=== PATIENT | female | born 1985 | race Caucasian/White ===

== ENCOUNTER → 2016-11-08 | Outpatient (REF) | payer OTHER ==
[~2016-11-08] MED LIST: ACET50TA PO; ANUS2.5C2 PR; DOCU10ELUD PO; IBUP80TA PO; LANOLIN CREAM TOP; MOM30SS PO; PRENTAB66 PO; TYLE325T5 PO
== END ==
LOC: M LABDRAWP 17:09
PROVIDERS: ATTEND Internal Medicine Endocrinology, Diabetes & Metabolism
DX: E06.3 Autoimmune thyroiditis (principal)

== ENCOUNTER → 2016-11-15 | Outpatient (CLI) | payer OTHER ==
--- NOTE | 2016-11-16 04:05 | REP ---
Clinical: Thyroid nodule. Technique: The time valentine scale and color evaluation using linear high frequency transducer and curved array transducer. Findings: The thyroid gland is diffusely heterogeneous. Right lobe measures 4.4 x 1.8 x 1.5 cm without cyst or nodule. Isthmus measures 4.1 mm in width. Left lobe measures 4.2 x 1.4 x 1.1 cm and includes 8 mm upper pole isoechoic nodule with small mural calcifications and similar 7 mm lower pole isoechoic nodule with small mural calcifications. Impression: Heterogeneous thyroid gland with two small left lobe nodules which are otherwise nonspecific and similar to prior examination. Signed by Justin Daley MD 11/16/2016 03:57 A
== END ==
LOC: M RAD 17:55
PROVIDERS: ATTEND Internal Medicine Endocrinology, Diabetes & Metabolism
DX: E04.1 Nontoxic single thyroid nodule (principal)

== ENCOUNTER → 2017-10-13 | Outpatient (CLI) | payer OTHER ==
[2017-10-13 18:59] LABS: FREE T4 0.98 NG/DL (0.76-1.46)
== END ==
LOC: M WUC 16:22
PROVIDERS: ATTEND Internal Medicine Endocrinology, Diabetes & Metabolism
DX: E04.2 Nontoxic multinodular goiter (principal)

== ENCOUNTER → 2017-12-08 | Outpatient (REF) | payer OTHER | LOC: M SFHCLERA 16:51 | DX: J02.9 Acute pharyngitis, unspecified (principal) ==

== ENCOUNTER → 2017-12-09 | Outpatient (REF) | payer OTHER | LOC: M LAB REF 10:00 | DX: J11.1 Influenza due to unidentified influenza virus with other respiratory manifestations (principal) ==

== ENCOUNTER → 2018-02-22 | Outpatient (CLI) | payer OTHER | LOC: M WUC 13:41 | DX: E06.3 Autoimmune thyroiditis (principal) | CPT/HCPCS: 84443 ==

== ENCOUNTER → 2018-02-22 | Outpatient (CLI) | payer OTHER ==
[2018-02-22 18:39] LABS: BASO % 0.4 % (0.0-1.0); EOS # 0.1 10^3/uL (0.0-0.50); EOS % 2.5 % (0.0-3.0); HEMATOCRIT 36.6 % (36.0-47.0); HEMOGLOBIN 12.1 g/dl (12.0-15.5); IMMATURE GRANULOCYTE % 0.2 % (0-3.0); LYMPH # 1.5 10^3/uL (1.5-4.5); LYMPH % 32.7 % (24.0-44.0); MEAN CORPUSCULAR HEMOGLOBIN 30.3 pg (27.0-33.0); MEAN CORPUSCULAR HGB CONC 33.1 g/dl (32.0-36.5); MEAN CORPUSCULAR VOLUME 91.7 fl (80.0-96.0); MONO # 0.3 10^3/uL (0.0-0.8); NEUTROPHILS # 2.6 10^3/uL (1.8-7.7); NEUTROPHILS % 57.2 % (36.0-66.0); PLATELET COUNT, AUTOMATED 321 10^3/uL (150-450); RED BLOOD COUNT 3.99 10^6/uL (4.00-5.40); RED CELL DISTRIBUTION WIDTH 12.8 % (11.5-14.5); WHITE BLOOD COUNT 4.5 10^3/uL (4.0-10.0)
[2018-02-22 19:06] LABS: ALBUMIN 4.3 GM/DL (3.2-5.2); ALBUMIN/GLOBULIN RATIO 1.34 (1.00-1.93); ALKALINE PHOSPHATASE 46 U/L (45-117); ALT/SGPT 21 U/L (12-78); ANION GAP 5 MEQ/L (8-16); AST/SGOT 18 U/L (7-37); BILIRUBIN,TOTAL 0.3 MG/DL (0.2-1.0); BLOOD UREA NITROGEN 12 MG/DL (7-18); CALCIUM LEVEL 8.8 MG/DL (8.5-10.1); CARBON DIOXIDE LEVEL 27 MEQ/L (21-32); CHLORIDE LEVEL 106 MEQ/L (98-107); CREATININE FOR GFR 0.74 MG/DL (0.55-1.30); GLOMERULAR FILTRATION RATE > 60.0 (>60); GLUCOSE, FASTING 132 MG/DL (70-100); SODIUM LEVEL 138 MEQ/L (136-145); TOTAL PROTEIN 7.5 GM/DL (6.4-8.2)
== END ==
LOC: M WUC 13:38
DX: J30.9 Allergic rhinitis, unspecified (principal); K59.09 Other constipation
CPT/HCPCS: 80053

== ENCOUNTER → 2018-04-09 | Outpatient (REF) | payer OTHER | LOC: M LAB REF 18:34 | DX: E04.1 Nontoxic single thyroid nodule (principal) ==

== ENCOUNTER → 2018-07-03 | Outpatient (REF) | payer OTHER ==
[2018-07-05 14:17] LABS: HPV HYBRID CAPTURE II Negative (Negative)
== END ==
LOC: M LAB REF 17:59
DX: Z12.4 Encounter for screening for malignant neoplasm of cervix (principal)

== ENCOUNTER → 2018-11-08 | Outpatient (CLI) | payer OTHER ==
[2018-11-08 19:43] LABS: FREE T4 1.21 NG/DL (0.76-1.46); THYROID STIMULATING HORMONE 0.651 uIU/ML (0.358-3.740)
== END ==
LOC: M WUC 17:15
PROVIDERS: ATTEND Nurse Practitioner Family
DX: E06.3 Autoimmune thyroiditis (principal)

== ENCOUNTER → 2019-05-13 | Outpatient (CLI) | payer OTHER ==
[~2019-05-13] MED LIST changes: -ACET50TA PO; -DOCU10ELUD PO; +DOCU5LIQ PO; +MAPA500T17 PO
[2019-05-13 17:31] LABS: FREE T4 0.94 NG/DL (0.76-1.46); THYROID STIMULATING HORMONE 1.54 uIU/ML (0.358-3.740)
== END ==
LOC: M WUC 13:33
PROVIDERS: ATTEND Nurse Practitioner Family
DX: E06.3 Autoimmune thyroiditis (principal)

== ENCOUNTER → 2019-07-09 | Outpatient (CLI) | payer OTHER ==
[2019-07-09 20:20] LABS: BASO # 0.1 10^3/uL (0.0-0.2); BASO % 0.9 % (0.0-1.0); EOS # 0.1 10^3/uL (0.0-0.5); EOS % 1.2 % (0.0-3.0); HEMATOCRIT 39.5 % (36.0-47.0); HEMOGLOBIN 13.3 g/dl (12.0-15.5); LYMPH # 1.7 10^3/uL (1.5-5.0); LYMPH % 25.8 % (24.0-44.0); MEAN CORPUSCULAR HGB CONC 33.7 g/dl (32.0-36.5); MEAN CORPUSCULAR VOLUME 92.1 fl (80.0-96.0); MONO # 0.5 10^3/uL (0.0-0.8); MONO % 7.6 % (0.0-5.0); NEUTROPHILS # 4.3 10^3/uL (1.5-8.5); NEUTROPHILS % 64.2 % (36.0-66.0); PLATELET COUNT, AUTOMATED 287 10^3/uL (150-450); RED BLOOD COUNT 4.29 10^6/uL (4.00-5.40); WHITE BLOOD COUNT 6.7 10^3/uL (4.0-10.0)
[2019-07-09 20:27] LABS: ALBUMIN 4.5 GM/DL (3.2-5.2); ALT/SGPT 22 U/L (12-78); BILIRUBIN,TOTAL 0.2 MG/DL (0.2-1.0); BLOOD UREA NITROGEN 15 MG/DL (7-18); CALCIUM LEVEL 9.2 MG/DL (8.5-10.1); CARBON DIOXIDE LEVEL 26 MEQ/L (21-32); CHLORIDE LEVEL 106 MEQ/L (98-107); CREATININE FOR GFR 0.74 MG/DL (0.55-1.30); GLOMERULAR FILTRATION RATE > 60.0 (>60); GLUCOSE, FASTING 85 MG/DL (70-100); POTASSIUM SERUM 4.1 MEQ/L (3.5-5.1); SODIUM LEVEL 139 MEQ/L (136-145); TOTAL PROTEIN 7.3 GM/DL (6.4-8.2)
--- NOTE | 2019-07-10 03:20 | REP ---
Clinical: Cough . Comparison: 10/17/2015 . Technique: PA and lateral. Findings: The mediastinum and cardiac silhouette are normal. The lung boyd are clear and without acute consolidation, effusion, or pneumothorax. The skeletal structures are intact and normal. Impression: 1. No acute cardiopulmonary process. Electronically Signed by Justin Daley MD 07/10/2019 03:12 A
== END ==
LOC: M WUC 17:14
PROVIDERS: ATTEND Physician Assistant Medical
DX: R05 Cough (principal)

== ENCOUNTER → 2019-08-05 | Outpatient (CLI) | payer OTHER ==
[2019-08-05 16:34] LABS: FREE T4 0.91 NG/DL (0.76-1.46); THYROID STIMULATING HORMONE 1.63 uIU/ML (0.358-3.740)
== END ==
LOC: M WUC 11:07
PROVIDERS: ATTEND Nurse Practitioner Family
DX: E06.3 Autoimmune thyroiditis (principal)

== ENCOUNTER → 2019-08-05 | Outpatient (CLI) | payer OTHER ==
[2019-08-05 16:28] LABS: CHOLESTEROL RISK RATIO 2.509 (<5)
== END ==
LOC: M WUC 11:10
PROVIDERS: ATTEND Physician Assistant Medical
DX: Z13.220 Encounter for screening for lipoid disorders (principal)

== ENCOUNTER → 2019-11-27 | Outpatient (CLI) | payer OTHER ==
[2019-11-27 20:48] LABS: FREE T4 1.1 NG/DL (0.76-1.46); THYROID STIMULATING HORMONE 0.989 uIU/ML (0.358-3.740)
== END ==
LOC: M WUC 15:27
PROVIDERS: ATTEND Nurse Practitioner Family
DX: E06.3 Autoimmune thyroiditis (principal)

== ENCOUNTER → 2020-09-03 | Outpatient (CLI) | payer OTHER ==
[2020-09-03 15:51] LABS: BASO % 0.7 % (0.0-1.0); C REACTIVE PROTEIN QUANTITATIV < 0.30 MG/DL (0.00-0.30); EOS # 0.1 10^3/uL (0.0-0.5); HEMATOCRIT 37.4 % (36.0-47.0); HEMOGLOBIN 12.2 g/dl (12.0-15.5); LYMPH # 1.3 10^3/uL (1.5-5.0); LYMPH % 27.7 % (24.0-44.0); MEAN CORPUSCULAR HGB CONC 32.6 g/dl (32.0-36.5); MEAN CORPUSCULAR VOLUME 92.1 fl (80.0-96.0); MONO # 0.3 10^3/uL (0.0-0.8); MONO % 7.4 % (0.0-5.0); NEUTROPHILS # 2.8 10^3/uL (1.5-8.5); NEUTROPHILS % 61.8 % (36.0-66.0); PLATELET COUNT, AUTOMATED 302 10^3/uL (150-450); RED BLOOD COUNT 4.06 10^6/uL (4.00-5.40); RHEUMATOID FACTOR QUANT < 10.0 IU/ML (<15.0); WHITE BLOOD COUNT 4.6 10^3/uL (4.0-10.0)
[2020-09-03 17:01] LABS: ERYTHROCYTE SEDIMENTATION RATE 6 mm/hr (0-20)
[2020-09-05 15:10] LABS: ANTINUCLEAR ANTIBODIES DIRECT Negative (Negative); Lyme Disease IgG/IgM Antibodie <0.91 ISR (0.00-0.90); Lyme Disease IgM Ab Quantitati <0.80 index (0.00-0.79)
== END ==
LOC: M PLALAB 12:33
PROVIDERS: ATTEND Orthopaedic Surgery
DX: M25.561 Pain in right knee (principal)

== ENCOUNTER → 2020-09-03 | Outpatient (REF) | payer OTHER ==
[2020-09-03 15:50] LABS: BASO % 0.9 % (0.0-1.0); EOS # 0.1 10^3/uL (0.0-0.5); EOS % 2.4 % (0.0-3.0); HEMATOCRIT 37.6 % (36.0-47.0); HEMOGLOBIN 12.3 g/dl (12.0-15.5); LYMPH # 1.3 10^3/uL (1.5-5.0); LYMPH % 29.1 % (24.0-44.0); MEAN CORPUSCULAR HEMOGLOBIN 30.1 pg (27.0-33.0); MEAN CORPUSCULAR HGB CONC 32.7 g/dl (32.0-36.5); MEAN CORPUSCULAR VOLUME 91.9 fl (80.0-96.0); MONO # 0.3 10^3/uL (0.0-0.8); MONO % 7.3 % (0.0-5.0); NEUTROPHILS # 2.7 10^3/uL (1.5-8.5); NEUTROPHILS % 60.1 % (36.0-66.0); PLATELET COUNT, AUTOMATED 305 10^3/uL (150-450); RED BLOOD COUNT 4.09 10^6/uL (4.00-5.40); WHITE BLOOD COUNT 4.5 10^3/uL (4.0-10.0)
[2020-09-03 16:02] LABS: ALBUMIN 4.1 GM/DL (3.2-5.2); ALT/SGPT 13 U/L (12-78); BILIRUBIN,TOTAL 0.4 MG/DL (0.2-1.0); BLOOD UREA NITROGEN 12 MG/DL (7-18); CALCIUM LEVEL 8.7 MG/DL (8.5-10.1); CARBON DIOXIDE LEVEL 26 MEQ/L (21-32); CHLORIDE LEVEL 108 MEQ/L (98-107); CHOLESTEROL LEVEL 144 MG/DL (<200); CHOLESTEROL RISK RATIO 2.769 (<5); CREATININE FOR GFR 0.64 MG/DL (0.55-1.30); FREE T4 0.93 NG/DL (0.76-1.46); GLOMERULAR FILTRATION RATE > 60.0 (>60); GLUCOSE, FASTING 88 MG/DL (70-100); HDL CHOLESTEROL 52 MG/DL (>40); LDL CHOLESTEROL 76 MG/DL (<100); NON-HDL-C 92 MG/DL; POTASSIUM SERUM 3.7 MEQ/L (3.5-5.1); SODIUM LEVEL 140 MEQ/L (136-145); TRIGLYCERIDES LEVEL 78 MG/DL (<150)
== END ==
LOC: M SFHCPLAZ 12:32
PROVIDERS: ATTEND Physician Assistant Medical
DX: E06.3 Autoimmune thyroiditis (principal); J30.9 Allergic rhinitis, unspecified; Z13.220 Encounter for screening for lipoid disorders

== ENCOUNTER → 2020-11-04 | Outpatient (CLI) | payer OTHER ==
[~2020-11-04] MED LIST changes: +LEVO25TA5 PO; +OMEP-221 PO; +VITMTA PO
== END ==
LOC: M LABSMTC 14:20
PROVIDERS: ATTEND Anesthesiology
DX: Z01.812 Encounter for preprocedural laboratory examination (principal); Z20.822 Contact with and (suspected) exposure to COVID-19

== ENCOUNTER 2020-11-09 11:08 | Day surgery (SDC) | payer OTHER ==
[~2020-11-09] VITALS: Ht 154.9 cm; Wt 54.9 kg
[~2020-11-09 11:08] MED LIST changes: +NS 1,000 ML IV ONE
--- OUTSIDE RECORDS SUMMARY | 2020-11-09 11:12 | CCD | Continuity of Care Document ---
Author Author Stress Nuclear/Reg Treadmill Maylin Organization Unknown Address [address] [place] [address], [place] [address] Phone [phone] Care Team Providers Care Sterile Tech Name Role Phone Hafsa Becker AUTM [phone] Vaishali Teague MD AUTM [phone] Eder Garcia MD AUTM [phone] Alisia Cisse MD AUTM [phone] Problems Active Problems Provider Date Dyspnea Jacob Malone MD Onset: 11/04/2020 Heart murmur Jacob Malone MD Onset: 11/04/2020 Palpitations Jacob Malone MD Onset: 11/04/2020 Preoperative cardiovascular examination Jacob Malone MD Onset: 11/04/2020 Pectus excavatum Jacob Malone MD Onset: 11/04/2020 Electrocardiogram abnormal Jacob Malone MD Onset: 2020 Social History Type Date Description Comments Sex Unknown ETOH Use Occasionally consumes alcohol Tobacco Use Start: Unknown Patient has never smoked Smoking Status Reviewed: 11/04/20 Patient has never smoked Exercise Type/Frequency Fully active: Ab le to carry on all performance without restriction Cardio for 20 minutes daily Exercise Limitations Shortness Of Breath Exercise Limitations Other Elevated HR Allergies, Adverse Reactions, Alerts Description No Known Drug Allergies Medications Active Medications SIG Qnty Indications Ordering Provide r Date Sumatriptan Succinate 50mg Tablets take 1 tab onset of migraine and repeat dose in 1 hour if needed, mdd=2 Unknown 11/03/2020 Levothyroxine Sodium 25mcg Tablets 1 by mouth every day Unknown 11/03/2020 Multivitamin Adults Tablets 1 by mouth every day Unknown 11/03/2020 Prilosec OTC 20mg Tablets DR 2 by mouth every day Unknown 11/02/2020 Immunizations Description No Information Available Vital Signs Date Vital Result Comment 11/04/2020 2:40pm Weight 119.00 lb Home Weight 121lb home weight Height 61 inches 5'1" BMI (Body Mass Index) 22.5 kg/m2 Heart Rate 64 /min regular Respiratory Rate 16 /min BP Systolic Sitting 127 mmHg Medium cuff, Ra; 122 / 82 LA BP Diastolic Sitting 84 mmHg Medium cuff, Ra; 12 2/ 82 LA BP Systolic Lying Down 132 mmHg Ra BP Diastolic Lying Down 85 mmHg Ra 02/06/2015 9:33am Weight 112.50 lb Home Weight 112lb Height 61 inches 5'1" BMI (Body Mass Index) 21.3 kg/m2 Heart Rate 78 /min regular Respiratory Rate 16 /min BP Systolic Sitting 120 mmHg both arms BP Diastolic Sitting 75 mmHg both arms BP Systolic Lying Down 115 mmHg Medium cuff, Ra BP Diastolic Lying Down 75 mmHg Medium cuff, Ra Results Test Acquired Date Facility Test Result H/L Range Note CBC without Differential 09/03/2020 [facility] - not inter faced (315)- - White Blood Count 4.6 Low 5.0-10.0 Red Blood Count 4.06 4.00-5.40 Platelets 302 172-450 Hemoglobin 12.2 Hematocrit 37.4 CMP 09/03/2020 [facility] - not interfaced (315)- - Albumin Serum/Plasma 4.1 Alt - SGPT 13 Calcium Ser/Plasma Mass/Vol 8.7 Carbon Dioxide Ser/Plasm 26 Chloride Serum/Plasma 108 Alkaline Phosphatase 42 Potassium 3.7 Protein Total 7.0 Sodium 140 Ast - Sgot 11 BUN - Urea Nitrogen 12 Glucose 88 83-110 Creatinine For GFR 0.64 Lipid Profile/Cardiac Risk Pro 09/03/2020 [facility] - not interfaced (315)- - Triglycerides 78 <150 Cholesterol 144 <200 HDL 52 >40.0 LDL Cholesterol 76 Chol/HDL Ratio 2.769 <5 Laboratory test finding 09/03/2020 [facility] - not interf aced (315)- - Thyroid Stimulating Hormone 1.660 Free T4 0.93 Procedures Date Code Description Status 11/05/2020 99846 Treadmill/Pharmacological Monito ring Completed 11/04/2020 61221 ECG 12-Lead Completed Medical Devices Description No Information Available Encounters Type Date Location Provider Dx Diagnosis Office Visit 11/04/2020 2:30p Main Office Jacob Malone MD R06.02 Shortness of breath R00.2 Palpitations R01.1 Cardiac murmur, unspecified R94.31 Abnormal electrocardiogram [ ECG] [EKG] Q67.6 Pectus excavatum Z01.810 Encounter for preprocedural cardiovascular examination Assessments Date Code Description Provider 11/05/2020 R06.00 Dyspnea, unspecified Stress Nucl ear/Reg Treadmill 11/05/2020 R94.31 Abnormal electrocardiogram [ECG] [EKG] Stress Nuclear/Reg Treadmill 11/05/2020 R00.2 Palpitations Stress Nuclear/R eg Treadmill 11/04/2020 R06.02 Shortness of breath Jacob morales MD 11/04/2020 R00.2 Palpitations Jacob Malone MD 11/04/2020 R01.1 Cardiac murmur, unspecified Noah Malone MD 11/04/2020 R94.31 Abnormal electrocardiogram [ECG] [EKG] Jacob Malone MD 11/04/2020 Q67.6 Pectus excavatum Jacob Malone MD 11/04/2020 Z01.810 Encounter for preprocedural card iovascular examination Jacob Malone MD Plan of Treatment Future Appointment(s):* 12/15/2020 3:00 pm - ECHO at Main Office 11/04/2020 - Jacob Malone MD* R06.02 Shortness of breath* Recommendations:* In light of this effort symptom and her associated palpitations, have suggested a regular treadmill stress study to objectively define her effort tolerance and rhythm. Should this confirm favorable findings, we would encourage her resuming her regular exercise routine for at least 30 minutes every day. An echocardiogram has been suggested as well because of her heart murmur, and this will allow us to objectively define cardiac chamber sizes and function. * R00.2 Palpitations* Recommendations:* No specific monitoring has been requested beyond that we will obtain at the time of her treadmill study and echocardiogram. Would encourage continued minimizing intake of caffeinated beverages, alcohol, nicotine and [id number] decongestants, pep pills, dietary aids etc. Discussed the use of Naprosyn twice a day prophylactically prior to predictable monthly migraine, rather than Sumatriptan. * R01.1 Cardiac murmur, unspecified* New Xrays:* US Echocardiogram Transthoracic W Doppler And Color Flow, Scheduled: 12/15/20 * Recommendations:* In light of this finding, pectus excavatum, slight thoracic scoliosis and family history of mitral valve prolapse, have suggested a follow-up echocardiogram/Doppler study to further clarify valvular appearance and function. * R94.31 Abnormal electrocardiogram [ECG] [EKG]* Recommendations:* Pending noninvasive test findings. * Q67.6 Pectus excavatum* Recommendations:* No special measures are deemed necessary beyond the noninvasive tests mentioned above. * Z01.810 Encounter for preprocedural cardiovascular examination* Recommendations:* I am cautiously optimistic noninvasive test findings will be benign and not interfere with her procedures. * All * Comments:* I will ensure that the aforementioned test findings are reported to you along with any further recommendations. Thank you for allowing me to participate in the care of your patient. Best regards. * Follow up:* Pending test results Functional Status Functional Condition Comment Date Status Independent with all ADL's Activ e Mental Status Description No Information Available Referrals Description No Information Available
--- OUTSIDE RECORDS SUMMARY | 2020-11-09 11:13 | CCD | Continuity of Care Document ---
Author Author Maylin CHAN MD Organization Unknown Address [address] [place] [address] Phone [phone] Problems Description No Information Available Social History Type Date Description Comments Sex Unknown Allergies, Adverse Reactions, Alerts Description No Information Available Medications Description No Information Available Immunizations Description No Information Available Vital Signs Description No Information Available Results Test Acquired Date Facility Test Result H/L Range Note Antinuclear Antibodies 09/03/2020 [place] [address] (315)- - Antinuclear Antibodies Direct Negative Normal Negati ve 1 Laboratory test finding [facility] [address] [place] [address] (315)- - Rheumatoid Factor Quant < 10.0 IU/mL Normal <15.0 CBC With Differential 09/03/[address] [address] (315)- - White Blood Count 4.6 10 Normal 4.0-10.0 Red Blood Count 4.06 10 Normal 4.00-5.40 Hemoglobin 12.2 g/dL Normal 12.0-15.5 Hematocrit 37.4 % Normal 36.0-47.0 Mean Corpuscular Volume 92.1 fl Normal 80.0-96.0 Mean Corpuscular Hemoglobin 30.0 pg Normal 27.0-33.0 Mean Corpuscular HGB Conc 32.6 g/dL Normal 32.0-36.5 Red Cell Distribution Width 12.6 % Normal 11.5-14.5 Platelet Count, Automated 302 10 Normal 150-450 Neutrophils % 61.8 % Normal 36.0-66.0 Lymph % 27.7 % Normal 24.0-44.0 Gove % 7.4 % High 0.0-5.0 Eos % 2.0 % Normal 0.0-3.0 Baso % 0.7 % Normal 0.0-1.0 Immature Granulocyte % 0.4 % Normal 0-3.0 Nucleated Red Blood Cell % 0.0 % Normal 0-0 Neutrophils # 2.8 10 Normal 1.5-8.5 Lymph # 1.3 10 Low 1.5-5.0 Gove # 0.3 10 Normal 0.0-0.8 Eos # 0.1 10 Normal 0.0-0.5 Baso # 0.0 10 Normal 0.0-0.2 Laboratory test finding 09/03/2020 [facility] [address] [place] [address] (315)- - C Reactive Protein Quantitativ < 0.30 mg/dL Normal 0.0 0-0.30 Lyme Disease SCRN With Confirm 09/03/2020 [facility] [address] [place] [address] (315)- - Lyme Disease IgG/IgM Antibodie <0.91 ISR Normal 0.00- 0.90 2 Lyme Disease IgM Ab Quantitati <0.80 index Normal 0.00-0.79 3 Laboratory test finding 09/03/2020 [facility] [address] [place] [address] (315)- - Erythrocyte Sedimentation Rate 6 mm/hr Normal 0-20 1 Performed at: RN - [facility] [address] [id number] Auger Machine Offbearer: Deb Monzon MD, Phone: [phone] 2 Negative <0.91 Equivocal 0.91 - 1.09 Positive >1.09 3 Negative <0.80 Equivocal 0.80 - 1.19 Positive >1.19 . IgM levels may peak at 3-6 weeks post infection, then gradually decline. Procedures Date Code Description Status 09/03/2020 07724 MRI Lower Extremity Any Joint Co mpleted 09/03/2020 94475 MRI Lower Extremity Any Joint Co mpleted 09/03/2020 72733 MRI Upper Extremity Any Joint Co mpleted 08/27/2020 13310 X-Ray Knee Complete W/Obliques & Tunnel And/Or Standing Views Completed 08/27/2020 45835 X-Ray Finger(S) Two Views Comple MtoV Description No Information Available Encounters Type Date Location Provider Dx Diagnosis Office Visit 09/11/2020 3:30p [place] Darron Chan MD M25.561 Pain in right knee M79.645 Pain in left finger(s) Office Visit 08/27/2020 3:00p [place] Darron Chan MD M25.561 Pain in right knee M19.042 Primary osteoarthritis, left hand Assessments Date Code Description Provider 09/11/2020 M25.561 Pain in right knee Darron drake MD 09/11/2020 M79.645 Pain in left finger(s) Darron Chan MD 09/03/2020 M25.561 Pain in right knee Darron drake MD 09/03/2020 M19.042 Primary osteoarthritis, left bolton d Darron Chan MD 09/03/2020 M25.561 Pain in right knee MRI 09/03/2020 M19.042 Primary osteoarthritis, left bolton d MRI 08/27/2020 M25.561 Pain in right knee Darron drake MD 08/27/2020 M19.042 Primary osteoarthritis, left bolton d Darron Chan MD Plan of Treatment No Information Available Functional Status Description No Information Available Mental Status Description No Information Available Referrals Refer to Dr Reason for Referral Status Appt Date Darron Chan MD PT ALLOWED EVAL THEN NEEDS A [facility]([phone]) GROUP#[id number] TO PT DEPT. NT Created [address] [place] [address] [phone] Darron Chan MD REF NO AUTH REQUIRED FOR REF TO HAND SURGEON AT [facility] TO TRANS NT Created [address] [place] [address] [phone] Darron Chan MD MRI'S APPROVED PER EDI Martin MRI OF RIGHT KNEE (32270) AND LEFT THUMB (61751) TO MRI. DG Created [address] [place] [address] [phone]
--- OUTSIDE RECORDS SUMMARY | 2020-11-09 11:13 | CCD | Continuity of Care Document ---
Author Author Maylin GARCIA M.D. Organization Unknown Address [address] [place] [address] Phone [phone] Care Team Providers Care Sharepoint Administrator Name Role Phone Hafsa Becker AUTM [phone] Problems Active Problems Provider Date Dysphagia Eder Garcia M.D. Onset: 10/08/20 20 Social History Type Date Description Comments Sex Unknown ETOH Use Occasionally Tobacco Use Start: Unknown Patient has never smoked Allergies, Adverse Reactions, Alerts Description No Known Drug Allergies Medications Active Medications SIG Qnty Indications Ordering Provide r Date Omeprazole 40mg Capsules DR 1 cap by mouth every morning 30caps Eder Garcia M.D. 020 Sumatriptan Succinate 50mg Tablets Hafsa Becker PA Levothyroxine Sodium 25mcg Tablets Alisia Cisse M.D. Multiple Vitamin Tablets Unknown Immunizations Description No Information Available Vital Signs Date Vital Result Comment 10/08/2020 1:28pm Height 61 inches 5'1" Weight 120.00 lb BP Systolic 117 mmHg BP Diastolic 86 mmHg Heart Rate 82 /min BMI (Body Mass Index) 22.7 kg/m2 Weight 54.432 kg Body Temperature 97.2 F Results Description No Information Available Procedures Description No Information Available Medical Devices Description No Information Available Encounters Type Date Location Provider Dx Diagnosis Office Visit 10/08/2020 1:15p Main Office Eder Garcia M.D. R 13.10 Dysphagia, unspecified Assessments Date Code Description Provider 10/08/2020 R13.10 Dysphagia, unspecified Eder Garcia M.D. Plan of Treatment Future Appointment(s):* 11/09/2020 9:00 am - Eder Garcia M.D. at Main Office 10/08/2020 - Eder Garcia M.D.* R13.10 Dysphagia, unspecified* Comments: * 35 yo wf who presents for a h/o dysphagia for 1 yr. No c/o abdominal pain, weight loss, change in bowel habits, or rectal bleeding. No family h/o colon cancer. No h/o chest pain, or sob. Plan:1. Egd + bd2. PPi bid.3. Informed consent. Functional Status Description No Information Available Mental Status Description No Information Available Referrals Description No Information Available
--- OUTSIDE RECORDS SUMMARY | 2020-11-09 11:13 | CCD | Continuity of Care Document ---
Author Author Maylin PRATT Organization Unknown Address [address] [place] [address] Phone [phone] Problems Description No Information Available Social History Type Date Description Comments Sex Unknown Allergies, Adverse Reactions, Alerts Description No Information Available Medications Description No Information Available Immunizations Description No Information Available Vital Signs Description No Information Available Results Test Acquired Date Facility Test Result H/L Range Note Antinuclear Antibodies 09/03/[address] [facility] [place] [address] (315)- - Antinuclear Antibodies Direct Negative Normal Negati ve 1 Laboratory test finding [facility] [address] [place] [address] (315)- - Rheumatoid Factor Quant < 10.0 IU/mL Normal <15.0 CBC With Differential 09/03/[address] [address] (315)- - White Blood Count 4.6 10 [...] 36.0-66.0 Lymph % 27.7 % Normal 24.0-44.0 Walker % 7.4 % High 0.0-5.0 Eos % 2.0 % Normal 0.0-3.0 Baso % 0.7 % Normal 0.0-1.0 Immature Granulocyte % 0.4 % Normal 0-3.0 Nucleated Red Blood Cell % 0.0 % Normal 0-0 Neutrophils # 2.8 10 Normal 1.5-8.5 Lymph # 1.3 10 Low 1.5-5.0 Walker # 0.3 10 Normal 0.0-0.8 Eos # 0.1 10 Normal 0.0-0.5 Baso # 0.0 10 Normal 0.0-0.2 Laboratory test finding 09/03/2020 [facility] [address] [place] [address] (315)- - C Reactive Protein Quantitativ < 0.30 mg/dL Normal 0.0 0-0.30 Lyme Disease SCRN With Confirm 09/03/[address] [facility] [address] [place] [address] (315)- - Lyme Disease IgG/IgM Antibodie <0.91 ISR Normal 0.00- 0.90 2 Lyme Disease IgM Ab Quantitati <0.80 index Normal 0.00-0.79 3 Laboratory test finding 09/03/2020 [facility] [address] [place] [address] (315)- - Erythrocyte Sedimentation Rate 6 mm/hr Normal 0-20 1 Performed at: RN - [facility] [address] [id number] [employer]ending Vice President: Deb Monzon MD, Phone: [phone] 2 Negative <0.91 Equivocal 0.91 - 1.09 Positive >1.09 3 Negative <0.80 Equivocal 0.80 - 1.19 Positive >1.19 . IgM levels may peak at 3-6 weeks post infection, then gradually decline. Procedures Date Code Description Status 09/03/2020 78433 MRI Lower Extremity Any Joint Co mpleted 09/03/2020 00629 MRI Lower Extremity Any Joint Co mpleted 09/03/2020 94955 MRI Upper Extremity Any Joint Co mpleted 08/27/2020 94880 X-Ray Knee Complete W/Obliques & Tunnel And/Or Standing Views Completed 08/27/2020 17188 X-Ray Finger(S) Two Views Comple [email or web address] Description No Information Available Encounters Type Date Location Provider Dx Diagnosis Office Visit 08/27/2020 3:00p [place] Darron Cisse MD M25.561 Pain in right knee M19.042 Primary osteoarthritis, left hand Assessments Date Code Description Provider 09/03/2020 M25.561 Pain in right knee Darron drake MD 09/03/2020 M19.042 Primary osteoarthritis, left bolton d Darron Cisse MD 09/03/2020 M25.561 Pain in right knee MRI 09/03/2020 M19.042 Primary osteoarthritis, left bolton d MRI 08/27/2020 M25.561 Pain in right knee Darron drake MD 08/27/2020 M19.042 Primary osteoarthritis, left bolton d Darron Cisse MD Plan of Treatment Future Appointment(s):* 09/11/2020 3:30 pm - Darron Cisse MD at [place] 08/27/2020 - Darron Cisse MD* M25.561 Pain in right knee* Follow up:* with [facility] after both mri's for results [facility] * M19.042 Primary osteoarthritis, left hand Functional Status Description No Information Available Mental Status Description No Information Available Referrals Refer to Dr Reason for Referral Status Appt Date Darron Cisse MD MRI'S APPROVED PER EDI Martin MRI OF RIGHT KNEE (38848) AND LEFT THUMB (82232) TO MRI. DG Created [facility], [address] [place] [address] [phone]
--- OUTSIDE RECORDS SUMMARY | 2020-11-09 11:13 | CCD | Continuity of Care Document ---
Author Author Maylin CHAN MD Organization Unknown Address [address] [place] [address] Phone [phone] Problems Description No Information Available Social History Type Date Description Comments Sex Unknown Allergies, Adverse Reactions, Alerts Description No Information Available Medications Description No Information Available Immunizations Description No Information Available Vital Signs Description No Information Available Results Test Acquired Date Facility Test Result H/L Range Note Antinuclear Antibodies 09/03/2020 [facility] [address] (315)- - Antinuclear Antibodies Direct Negative Normal Negati ve 1 Laboratory test finding 09/03/[facility] [address] [place] [address] (315)- - Rheumatoid Factor Quant < 10.0 IU/mL Normal <15.0 CBC With Differential 09/03/[address] [address] (315)- - White Blood Count 4.6 10 [...] 36.0-66.0 Lymph % 27.7 % Normal 24.0-44.0 Hall % 7.4 % High 0.0-5.0 Eos % 2.0 % Normal 0.0-3.0 Baso % 0.7 % Normal 0.0-1.0 Immature Granulocyte % 0.4 % Normal 0-3.0 Nucleated Red Blood Cell % 0.0 % Normal 0-0 Neutrophils # 2.8 10 Normal 1.5-8.5 Lymph # 1.3 10 Low 1.5-5.0 Hall # 0.3 10 Normal 0.0-0.8 Eos # 0.1 10 Normal 0.0-0.5 Baso # 0.0 10 Normal 0.0-0.2 Laboratory test finding 09/03/2020 [facility] Cent[facility] [address] [place] [address] (315)- - C Reactive Protein Quantitativ < 0.30 mg/dL Normal 0.0 0-0.30 Lyme Disease SCRN With Confirm 09/03/2020 [facility] [address] [place] [address] (315)- - Lyme Disease IgG/IgM Antibodie <0.91 ISR Normal 0.00- 0.90 2 Lyme Disease IgM Ab Quantitati <0.80 index Normal 0.00-0.79 3 Laboratory test finding 09/03/2020 [facility] [address] [place] [address] (315)- - Erythrocyte Sedimentation Rate 6 mm/hr Normal 0-20 1 Performed at: RN - [facility] [address] [id number] Application Dba: Deb Monzon MD, Phone: [phone] 2 Negative <0.91 Equivocal 0.91 - 1.09 Positive >1.09 3 Negative <0.80 Equivocal 0.80 - 1.19 Positive >1.19 . IgM levels may peak at 3-6 weeks post infection, then gradually decline. Procedures Date Code Description Status 08/27/2020 20689 X-Ray Knee Complete W/Obliques & Tunnel And/Or Standing Views Completed 08/27/2020 66040 X-Ray Finger(S) Two Views Comple maureen Medical Devices Description No Information Available Encounters Type Date Location Provider Dx Diagnosis Office Visit 08/27/2020 3:00p [place] Darron Chan MD M25.561 Pain in right knee M19.042 Primary osteoarthritis, left hand Assessments Date Code Description Provider 08/27/2020 M25.561 Pain in right knee Darron drake MD 08/27/2020 M19.042 Primary osteoarthritis, left bolton d Darron Chan MD Plan of Treatment Future Appointment(s):* 09/11/2020 3:30 pm - Darron Chan MD at [place] 08/27/2020 - Darron Chan MD* M25.561 Pain in right knee* Follow up:* with [facility] after both mri's for results [facility] * M19.042 Primary osteoarthritis, left hand Functional Status Description No Information Available Mental Status Description No Information Available Referrals Refer to Dr Reason for Referral Status Appt Date Darron Chan MD MRI'S APPROVED PER EDI Martin MRI OF RIGHT KNEE (62520) AND LEFT THUMB (97319) TO MRI. DG Created [address] [facility], [address] [place] [address] [phone]
--- OUTSIDE RECORDS SUMMARY | 2020-11-09 11:13 | CCD ---
Author Author [facility] Organization [facility] Address Unknown Phone Unavailable Care Team Providers Care Squirt Machine Operator Name Role Phone Rosita Hafsa Unavailable PROBLEMS Type Condition ICD9-CM Code GWQ43-CA Code Onset Dates Condition S tatus SNOMED Code Notes Problem Chronic constipation K59.09 Active 671595161 Problem Allergic rhinitis J30.9 Active 79316933 Problem Migraines G43.909 Active 63790634 Problem Acne vulgaris L70.0 Active 01908637 Problem Axillary lymphadenopathy R59.0 Active 6703509 05 Problem Lipid screening Z13.220 Active 656193958 Problem Mitral valve insufficiency, unspecified etiology I 34.0 Active 02026604 Problem MRSA (methicillin resistant staph aureus) culture positive Z22.322 Active 676815701 Problem Pectus excavatum Q67.6 Active 566899661 Problem Radha's thyroiditis E06.3 Active 16362868 Problem Colon cancer screening Z12.11 Active 182406389 Problem Breast cancer screening Z12.39 Active 03252206 1 Problem Cervical cancer screening Z12.4 Active 354608 001 Problem Esophageal dysphagia R13.10 Active 13627375 ALLERGIES No Known Allergies ENCOUNTERS from 1985 to 2020-09-10 Encounter Location Date Provider Diagnosis [address] [address] 13 Aug, 2020 Hafsa Becker Mitral valve insufficiency, unspecified etiology I34.0 and Pectus excavatum Q67.6 IMMUNIZATIONS Vaccine Route Administration Date Status Influenza (Pharmacy Given) Unknown Oct 03, 2019 Admin istered Influenza (18 yrs & older) Flublok Unknown Aug 11, 2020 Administered Pneumococcal 0.5mL (Prevnar 13) IM Intramuscular Jul 25, 2019 Administered Pneumococcal 0.5mL (Prevnar 13) Unknown Sep 21, 2016 Administered Influenza (6mo & up) Fluzone Unknown Aug 02, 2017 Adm inistered Influenza (6mo & up) Fluzone Unknown Sep 21, 2016 Adm inistered Influenza (6mo & up) Fluzone Unknown Oct 17, 2015 Oth ers SOCIAL HISTORY Tobacco Use: Social History Observation Description Date Details (start date - stop date) Never Smoker Sex Assigned At : Social History Observation Description Sex Assigned At Female Education: Question Answer Notes Level of Education: Finished High School Audit Question Answer Notes Total Score: 4 Interpretation: Alcohol Education Language: Question Answer Notes Languages spoken: Mongolian Worship: Question Answer Notes Worship 21 [employer] Drug and Alcohol Question Answer Notes Total Score: 0 Interpretation: No problems reported Alcohol Screening: Question Answer Notes Did you have a drink containing alcohol in the past year? Ye s Points 1 Interpretation Negative How often did you have six or more drinks on one occas ion in the past year? Never (0 points) How many drinks did you have on a typica l day when you were drinking in the past year? 1 or 2 (0 points) How often did you have a drink containing alcohol in t he past year? Monthly or less (1 point) Tobacco Use: Question Answer Notes Are you a: never smoker REASON FOR REFERRAL No Information VITAL SIGNS No information MEDICATIONS Medication SIG (Take, Route, Frequency, Duration) Notes Start Da te End Date Status Colace 100 MG 1 capsule as needed Orally Once a day for 30 day(s) Active Mucinex 600 MG 1 tablet as needed Orally every 12 hrs for 3 days Active Claritin 10 MG 1 tablet Orally Once a day as needed Active Flonase 50 MCG/ACT 1 spray in each nostril Nasally Once a day Active Imitrex 50 MG 1 tablet once a day as neede d, may repeat once in 1 hour, may repeat once if headache continues after 1 hour Orally Twice a day MDD2 for 30 Days Active ProAir HFA 108 (90 Base) MCG/ACT 2 puffs as needed Inhalation every 6 hrs Active MiraLax - as directed Orally Active Minocycline HCl 50 MG 1 capsule Orally bid Active Synthroid 25 MCG 1/2 tablet 12.5 mcg on an em pty stomach in the morning Orally Once a day Active PROCEDURES No Information RESULTS No Results REASON FOR VISIT referral MEDICAL (GENERAL) HISTORY Type Description Date Medical History Migraines Medical History Hashimotos sees Dr. Perez Simpson Medical History Allergic Rhinitis-bronchitis & pneumonia 5Y in a row Medical History Palpitations,tachycardia see s Dr. Kelly 2 Mitral Valve Insuffic., pectus excavatum, scoliosis Medical History MRSA @ [facility] 2014, 2016 again Surgical History Breast BIopsy-[facility] Goals Section No Information Health Concerns No Information MEDICAL EQUIPMENT No Information MENTAL STATUS No Information FUNCTIONAL STATUS No Information ASSESSMENTS Encounter Date Diagnosis Assessment Notes Treatment Notes Treatm ent Clinical Notes Aug, Mitral valve insufficiency, unspecified etiology (ICD-10 - I34.0) Aug, Pectus excavatum (ICD-10 - Q67.6) PLAN OF TREATMENT Medication Medication Name Sig Start Date Stop Date Colace 100 MG 1 capsule as needed Orally Once a day for 30 day (s) MiraLax - as directed Orally Flonase 50 MCG/ACT 1 spray in each nostril Nasally Once a day Minocycline HCl 50 MG 1 capsule Orally bid Synthroid 25 MCG 1/2 tablet 12.5 mcg on an em pty stomach in the morning Orally Once a day Claritin 10 MG 1 tablet Orally Once a day as needed Imitrex 50 MG 1 tablet once a day as neede d, may repeat once in 1 hour, may repeat once if headache continues after 1 hour Orally Twice a day MDD2 for 30 Days Next Appt Details Provider Name:Hafsa Mario Becker, 02-22 03:00:00 PM, [address] [place], [address], Insurance Providers Payer Name Payer Address Payer Phone Insured Name Patient Relati onship to Insured Coverage Start Date Coverage End Date [facility] [address] [address] [facility] [id number] MANOLO PATEL
--- OUTSIDE RECORDS SUMMARY | 2020-11-09 11:13 | CCD | Continuity of Care Document ---
Author Author Maylin GARCIA M.D. Organization Unknown Address [address] [place] [address] Phone [phone] Care Team Providers Care Art Sales Consultant Name Role Phone Hafsa Becker AUTM [phone] Problems Active Problems Provider Date Dysphagia Eder [...]
--- OUTSIDE RECORDS SUMMARY | 2020-11-09 11:13 | CCD | Continuity of Care Document ---
Author Author Maylin PRATT Organization Unknown Address [address] [place] [address], [address] [address] Phone [phone] Problems Description No Information Available Social History Type Date Description Comments Sex Unknown Allergies, Adverse Reactions, Alerts Description No Information Available Medications Description No Information Available Immunizations Description No Information Available Vital Signs Description No Information Available Results Description No Information Available Procedures Date Code Description Status 08/27/2020 44190 X-Ray Knee Complete W/Obliques & Tunnel And/Or Standing Views Completed 08/27/2020 60520 X-Ray Finger(S) Two Views Comple [employer] Description No Information Available Encounters Type Date Location Provider Dx Diagnosis Office Visit 08/27/2020 3:00p [place] Darron Cisse MD M25.561 Pain in right knee M19.042 Primary osteoarthritis, left hand Assessments Date Code Description Provider 08/27/2020 M25.561 Pain in right knee Darron drake MD 08/27/2020 M19.042 Primary osteoarthritis, left bolton d Darron Cises MD Plan of Treatment Future Appointment(s):* 09/11/2020 3:30 pm - Darron Cisse MD at [place] 08/27/2020 - Darron Cisse MD* M25.561 Pain in right knee* Follow up:* with [facility] after both mri's for results [facility] * M19.042 Primary osteoarthritis, left hand Functional Status Description No Information Available Mental Status Description No Information Available Referrals Refer to Reason for Referral Status Appt Date Darron Cisse MD MRI'S APPROVED PER EDI Martin MRI OF RIGHT KNEE (05169) AND LEFT THUMB (53027) TO MRI. DG Created [address] [place] [address], [address] [place] [address] [phone]
--- OUTSIDE RECORDS SUMMARY | 2020-11-09 11:13 | CCD ---
Author Author [facility] Organization [facility] Address Unknown Phone Unavailable Care Team Providers Care Oil Paint Shader Name Role Phone Jessica Espositondra Unavailable PROBLEMS Type Condition ICD9-CM Code BPZ48-HE Code Onset Dates Condition S tatus SNOMED Code Notes Problem Chronic constipation K59.09 Active 771682028 Problem Allergic rhinitis J30.9 Active 08996489 Problem Migraines G43.909 Active 83339346 Problem Acne vulgaris L70.0 Active 81988457 Problem Axillary lymphadenopathy R59.0 Active 4748777 05 Problem Lipid screening Z13.220 Active 640927075 Problem Mitral valve insufficiency, unspecified etiology I 34.0 Active 30561699 Problem MRSA (methicillin resistant staph aureus) culture positive Z22.322 Active 537545556 Problem Pectus excavatum Q67.6 Active 334091450 Problem Radha's thyroiditis E06.3 Active 31998492 Problem Colon cancer screening Z12.11 Active 346367498 Problem Breast cancer screening Z12.39 Active 78484490 1 Problem Cervical cancer screening Z12.4 Active 511126 001 Problem Esophageal dysphagia R13.10 Active 86988347 ALLERGIES No Known Allergies ENCOUNTERS from 1986 to 2020-10-01 Encounter Location Date Provider Diagnosis [address] [address] Sep, Juliane Esposito IMMUNIZATIONS Vaccine Route Administration Date Status Pneumococcal 0.5mL (Prevnar 13) IM Intramuscular Jul 25, 2019 Administered Influenza (Pharmacy Given) Unknown Oct 03, 2019 Admin istered Influenza (18 yrs & older) Flublok Unknown Aug 11, 2020 Administered Pneumococcal 0.5mL (Prevnar 13) Unknown Sep [...] Education Language: Question Answer Notes Languages spoken: Maltese Yarsani: Question Answer Notes Yarsani 21 [facility] [facility] and Alcohol Question Answer Notes Total [...] Notes Start Da te End Date Status Mucinex 600 MG 1 tablet as needed Orally every 12 hrs for 3 days Active Imitrex 50 MG 1 tablet once a day as neede d, may repeat once in 1 hour, may repeat once if headache continues after 1 hour Orally Twice a day MDD2 for 30 Days Active Hibiclens 4 % as directed Externally Daily for 30 days Sep, Active Colace 100 MG 1 capsule as needed Orally Once a day for 30 day(s) Active Mupirocin 2 % apply thin layer to lesion o n back Externally Three times a day for 7 days Sep, Active Diflucan 150 MG 1 tablet Orally take at onse t of symptoms; repeat after 72 hours if your symptoms persist for 4 days Sep, Active ProAir HFA 108 (90 Base) MCG/ACT 2 puffs as needed Inhalation every 6 hrs Active MiraLax - as directed Orally Active Flonase 50 MCG/ACT 1 spray in each nostril Nasally Once a day Active Synthroid 25 MCG 1 tablet Orally Once a day Active Minocycline HCl 100 MG 1 capsule Orally bid Active Doxycycline Hyclate 100 MG 1 capsule Orally Twice a day for 7 da y(s) Sep, Active Claritin 10 MG 1 tablet Orally Once a day as needed Active PROCEDURES No Information RESULTS No Results REASON FOR VISIT Sore on back. MEDICAL (GENERAL) HISTORY Type Description Date Medical History Migraines Medical History Hashimotos sees Dr. Perez Simpson Medical History Allergic Rhinitis-bronchitis & pneumonia 5Y in a row Medical History Palpitations,tachycardia see s Dr. Kelly 2 Mitral Valve Insuffic., pectus excavatum, scoliosis Medical History MRSA @ [facility] 2014, 2016 again Surgical History Breast BI[facility] Goals Section No Information Health Concerns No Information MEDICAL EQUIPMENT No Information MENTAL STATUS No Information FUNCTIONAL STATUS No Information ASSESSMENTS No Information PLAN OF TREATMENT Medication Medication Name Sig Start Date Stop Date Mupirocin 2 % apply thin layer to lesion o n back Externally Three times a day for 7 days Sep, Doxycycline Hyclate 100 MG 1 capsule Orally Twice a day for 7 day(s) Sep, Diflucan 150 MG 1 tablet Orally take at onse t of symptoms; repeat after 72 hours if your symptoms persist for 4 days Sep, Hibiclens 4 % as directed Externally Daily for 30 days Sep, Next Appt Details Provider Name:Hafsa Becker, 02-22 03:00:00 PM, [address] [place], [address], Insurance Providers Payer Name Payer Address Payer Phone Insured Name Patient Relati onship to Insured Coverage Start Date Coverage End Date [facility] [address] [address] [facility] [id number] MANOLO PATEL
--- OUTSIDE RECORDS SUMMARY | 2020-11-09 11:13 | CCD ---
Continuity of Care Document (CCD) Created on: 09/04/2020 Maylin Pryor External Reference #: [id number] : [id number] Sex: Female Author Author Mayiln CHAN MD Organization Unknown Address [address] [place] [address] Phone [phone] Problems Description No Information Available Social History Type Date Description Comments Sex Unknown Allergies, Adverse Reactions, Alerts Description No Information Available Medications Description No Information Available Immunizations Description No Information Available Vital Signs Description No Information Available Results Test Acquired Date Facility Test Result H/L Range Note Laboratory test finding 09[facility]03/[facility] [address] [place] [address] (537)- - Rheumatoid Factor Quant < 10.0 IU/mL Normal <15.0 CBC With Differential 09/03/2020 [facility] [address] [place] [address] (476)- - White Blood Count 4.6 10 Normal [...] 36.0-66.0 Lymph % 27.7 % Normal 24.0-44.0 [place] % 7.4 % High 0.0-5.0 Eos % 2.0 % Normal 0.0-3.0 Baso % 0.7 % Normal 0.0-1.0 Immature Granulocyte % 0.4 % Normal 0-3.0 Nucleated Red Blood Cell % 0.0 % Normal 0-0 Neutrophils # 2.8 10 Normal 1.5-8.5 Lymph # 1.3 10 Low 1.5-5.0 Coleman # 0.3 10 Normal 0.0-0.8 Eos # 0.1 10 Normal 0.0-0.5 Baso # 0.0 10 Normal 0.0-0.2 Laboratory test finding 09/03/2020 [facility] [address] [place] [address] (315)- - C Reactive Protein Quantitativ < 0.30 mg/dL Normal 0.0 0-0.30 Laboratory test finding 09/03/2020 [facility] [address] [place] [address] (315)- - Erythrocyte Sedimentation Rate 6 mm/hr Normal 0-20 Procedures Date Code Description Status 08/27/2020 85229 X-Ray Knee Complete W/Obliques & Tunnel And/Or Standing Views Completed 08/27/2020 16916 X-Ray Finger(S) Two Views Comple [employer] Description No Information Available Encounters Type Date Location Provider Dx Diagnosis Office Visit 08/27/2020 3:00p [place] Darron Chan MD M25.561 Pain in right knee M19.042 Primary osteoarthritis, left hand Assessments Date Code Description Provider 08/27/2020 M25.561 Pain in right knee Darron drake MD 08/27/2020 M19.042 Primary osteoarthritis, left bolton d Darron Chan MD Plan of Treatment Future Appointment(s):* 09/11/2020 3:30 pm - Darron Chan MD at [place] 08/27/2020 - Darron Chan MD* M25.561 Pain in right knee* Follow up:* with [facility] after both mri's for results [facility] * M19.042 Primary osteoarthritis, left hand Functional Status Description No Information Available Mental Status Description No Information Available Referrals Refer to Reason for Referral Status Appt Date Darron Chan MD MRI'S APPROVED PER EDI Martin MRI OF RIGHT KNEE (33072) AND LEFT THUMB (60843) TO MRI. DG Created [address] [facility], [address] [place] [address] [phone]
--- OUTSIDE RECORDS SUMMARY | 2020-11-09 11:13 | CCD | Continuity of Care Document ---
Author Author Maylin CHAN MD Organization Unknown Address [address] [place] [address] Phone [phone] Problems Description No Information Available Social History Type Date Description Comments Sex Unknown Allergies, Adverse Reactions, Alerts Description No Information Available Medications Description No Information Available Immunizations Description No Information Available Vital Signs Description No Information Available Results Test Acquired Date Facility Test Result H/L Range Note Antinuclear Antibodies 09/03/2020 [facility] [place] [address] (315)- - Antinuclear Antibodies Direct Negative Normal Negati ve 1 Laboratory test finding 09/03/2020 [facility] [address] [place] [address] (315)- - Rheumatoid Factor Quant < 10.0 IU/mL Normal <15.0 CBC With Differential 09/03/[address] [address] (315)- - White Blood Count 4.6 10 [...] 36.0-66.0 Lymph % 27.7 % Normal 24.0-44.0 [place] % 7.4 % High 0.0-5.0 Eos % 2.0 % Normal 0.0-3.0 Baso % 0.7 % Normal 0.0-1.0 Immature Granulocyte % 0.4 % Normal 0-3.0 Nucleated Red Blood Cell % 0.0 % Normal 0-0 Neutrophils # 2.8 10 Normal 1.5-8.5 Lymph # 1.3 10 Low 1.5-5.0 [place] # 0.3 10 Normal 0.0-0.8 Eos # 0.1 10 Normal 0.0-0.5 Baso # 0.0 10 Normal 0.0-0.2 Laboratory test finding 09/03/2020 [facility] [address] [place] [address] (315)- - C Reactive Protein Quantitativ < 0.30 mg/dL Normal 0.0 0-0.30 Lyme Disease SCRN With Confirm 09/03/2020 [facility] [address] [place] [address] (315)- - Lyme Disease IgG/IgM Antibodie <0.91 ISR Normal 0.00- 0.90 2 Lyme Disease IgM Ab Quantitati <0.80 index Normal 0.00-0.79 3 Laboratory test finding 09/03/2020 [facility] [address] [place] [address] (315)- - Erythrocyte Sedimentation Rate 6 mm/hr Normal 0-20 1 Performed at: RN - [facility] [address] [id number] Audio Video Technician: Deb Monzon MD, Phone: [phone] 2 Negative <0.91 Equivocal 0.91 - 1.09 Positive >1.09 3 Negative <0.80 Equivocal 0.80 - 1.19 Positive >1.19 . IgM levels may peak at 3-6 weeks post infection, then gradually decline. Procedures Date Code Description Status 09/03/2020 17596 MRI Lower Extremity Any Joint Co mpleted 09/03/2020 25234 MRI Lower Extremity Any Joint Co mpleted 09/03/2020 69290 MRI Upper Extremity Any Joint Co mpleted 08/27/2020 13613 X-Ray Knee Complete W/Obliques & Tunnel And/Or Standing Views Completed 08/27/2020 82419 X-Ray Finger(S) Two Views Comple [employer] Description No Information Available Encounters Type Date Location Provider Dx Diagnosis Office Visit 09/11/2020 3:30p [place] Darron Chan MD M19.042 Primary osteoarthritis, left hand M25.561 Pain in right knee M76.31 Iliotibial band syndrome, ri ght leg Office Visit 08/27/2020 3:00p [place] Darron Chan MD M25.561 Pain in right knee M19.042 Primary osteoarthritis, left hand Assessments Date Code Description Provider 09/11/2020 M19.042 Primary osteoarthritis, left bolton d Darron Chan MD 09/11/2020 M25.561 Pain in right knee Darron drake MD 09/11/2020 M76.31 Iliotibial band syndrome, right leg Darron Chan MD 09/03/2020 M25.561 Pain in right knee Darron drake MD 09/03/2020 M19.042 Primary osteoarthritis, left bolton d Darron Chan MD 09/03/2020 M25.561 Pain in right knee MRI 09/03/2020 M19.042 Primary osteoarthritis, left bolton d MRI 08/27/2020 M25.561 Pain in right knee Darron drake MD 08/27/2020 M19.042 Primary osteoarthritis, left bolton d Darron Chan MD Plan of Treatment 09/11/2020 - Darron Chan MD* M19.042 Primary osteoarthritis, left hand* New Orders:* Referral, Ordered: 09/11/20 * Follow up:* prn * M25.561 Pain in right knee * M76.31 Iliotibial band syndrome, right leg Functional Status Description No Information Available Mental Status Description No Information Available Referrals Refer to Reason for Referral Status Appt Date Darron Chan MD MRI'S APPROVED PER EDI Martin MRI OF RIGHT KNEE (71379) AND LEFT THUMB (93526) TO MRI. DG Created [address] [place] [address], [address] [place] [address] [phone]
--- OUTSIDE RECORDS SUMMARY | 2020-11-09 11:13 | CCD | Continuity of Care Document ---
Author Author Maylin PRATT Organization Unknown Address [address] [place] [address], [address] [address] Phone [phone] Problems Description No Information Available Social History Type Date Description Comments Sex Unknown Allergies, Adverse Reactions, Alerts Description No Information Available Medications Description No Information Available Immunizations Description No Information Available Vital Signs Description No Information Available Results Description No Information Available Procedures Date Code Description Status 08/27/2020 25645 X-Ray Knee Complete W/Obliques & Tunnel And/Or Standing Views Completed 08/27/2020 96520 X-Ray Finger(S) Two Views Comple [facility] Description No Information Available Encounters Type Date Location Provider Dx Diagnosis Office Visit 08/27/2020 3:00p [place] Darron Cisse MD M25.561 Pain in right knee M19.042 Primary osteoarthritis, left hand Assessments Date Code Description Provider 08/27/2020 M25.561 Pain in right knee Darron drake MD 08/27/2020 M19.042 Primary osteoarthritis, left bolton d Darron Cisse MD Plan of Treatment Future Appointment(s):* 09/11/2020 3:30 pm - Darron Cisse MD at [place] 08/27/2020 - Darron Cisse MD* M25.561 Pain in right knee* Follow up:* with [facility] after both mri's for results [facility] * M19.042 Primary osteoarthritis, left hand Functional Status Description No Information Available Mental Status Description No Information Available Referrals Refer to Reason for Referral Status Appt Date Darron Cisse MD MRI'S APPROVED PER EDI Martin MRI OF RIGHT KNEE (80973) AND LEFT THUMB (00175) TO MRI. DG Created [address] [place] [address], [address] [place] [address] [phone]
--- OUTSIDE RECORDS SUMMARY | 2020-11-09 11:13 | CCD ---
Continuity of Care Document (CCD) Created on: 09/08/2020 Maylin Pryor External Reference #: [id number] : 1985 Sex: Female Author Author Maylin CHAN MD Organization Unknown Address [address] [place] [address] Phone [phone] Problems Description No Information Available Social History Type Date Description Comments Sex Unknown Allergies, Adverse Reactions, Alerts Description No Information Available Medications Description No Information Available Immunizations Description No Information Available Vital Signs Description No Information Available Results Test Acquired Date Facility Test Result H/L Range Note Antinuclear Antibodies 09/03/2020 [facility] [place] [address] (315)- - Antinuclear Antibodies Direct Negative Normal Negati ve 1 Laboratory test finding 09/03/2020 [facility] [address] [place] [address] (315)- - Rheumatoid Factor Quant < 10.0 IU/mL Normal <15.0 CBC With Differential 09/03/[address] [address] (315)- - White Blood Count 4.6 10 [...] 36.0-66.0 Lymph % 27.7 % Normal 24.0-44.0 [place] % 7.4 % High 0.0-5.0 Eos % 2.0 % Normal 0.0-3.0 Baso % 0.7 % Normal 0.0-1.0 Immature Granulocyte % 0.4 % Normal 0-3.0 Nucleated Red Blood Cell % 0.0 % Normal 0-0 Neutrophils # 2.8 10 Normal 1.5-8.5 Lymph # 1.3 10 Low 1.5-5.0 [place] # 0.3 10 Normal 0.0-0.8 Eos # 0.1 10 Normal 0.0-0.5 Baso # 0.0 10 Normal 0.0-0.2 Laboratory test finding 09/03/2020 [facility] [address] [place] [address] (315)- - C Reactive Protein Quantitativ < 0.30 mg/dL Normal 0.0 0-0.30 Lyme Disease SCRN With Confirm 09/03/2020 [facility] [address] [place] [address] (315)- - Lyme Disease IgG/IgM Antibodie <0.91 ISR Normal 0.00- 0.90 2 Lyme Disease IgM Ab Quantitati <0.80 index Normal 0.00-0.79 3 Laboratory test finding 09/03/2020 [facility] [address] [place] [address] (315)- - Erythrocyte Sedimentation Rate 6 mm/hr Normal 0-20 1 Performed at: RN - [facility] [address] [id number] Associate Financial Representative: Deb Monzon MD, Phone: [phone] 2 Negative <0.91 Equivocal 0.91 - 1.09 Positive >1.09 3 Negative <0.80 Equivocal 0.80 - 1.19 Positive >1.19 . IgM levels may peak at 3-6 weeks post infection, then gradually decline. Procedures Date Code Description Status 09/03/2020 07848 MRI Lower Extremity Any Joint Co mpleted 09/03/2020 51524 MRI Upper Extremity Any Joint Co mpleted 08/27/2020 57408 X-Ray Knee Complete W/Obliques & Tunnel And/Or Standing Views Completed 08/27/2020 87431 X-Ray Finger(S) Two Views Comple CSDN Description No Information Available Encounters Type Date Location Provider Dx Diagnosis Office Visit 08/27/2020 3:00p [place] Darron Chan MD M25.561 Pain in right knee M19.042 Primary osteoarthritis, left hand Assessments Date Code Description Provider 09/03/2020 M25.561 Pain in right knee MRI 09/03/2020 M19.042 Primary osteoarthritis, left bolton d MRI 08/27/2020 M25.561 Pain in right knee Darron drake MD 08/27/2020 M19.042 Primary osteoarthritis, left bolton d Darron Chan MD Plan of Treatment Future Appointment(s):* 09/11/2020 3:30 pm - Darron Chan MD at [place] 08/27/2020 - Darron Chan MD* M25.561 Pain in right knee* Follow up:* with [facility] after both mri's for results [facility] * M19.042 Primary osteoarthritis, left hand Functional Status Description No Information Available Mental Status Description No Information Available Referrals Refer to Dr Reason for Referral Status Appt Date Darron Chan MD MRI'S APPROVED PER EDI Martin MRI OF RIGHT KNEE (58469) AND LEFT THUMB (57393) TO MRI. DG Created [address] [facility], [address] [place] [address] [phone]
--- OUTSIDE RECORDS SUMMARY | 2020-11-09 11:13 | CCD | Continuity of Care Document ---
Author Author Maylin PRATT Organization Unknown Address [address] [place] [address] Phone [phone] Problems Description No Information Available Social History Type Date Description Comments Sex Unknown Allergies, Adverse Reactions, Alerts Description No Information Available Medications Description No Information Available Immunizations Description No Information Available Vital Signs Description No Information Available Results Test Acquired Date Facility Test Result H/L Range Note Antinuclear Antibodies 09/03/2020 [facility] [place] [address] (315)- - Antinuclear Antibodies Direct Negative Normal Negati ve 1 Laboratory test finding 09/03/2020 [facility] [address] [place] [address] (315)- - Rheumatoid Factor Quant < 10.0 IU/mL Normal <15.0 CBC With Differential 09/03/[address] [address] (315)- - White Blood Count 4.6 10 [...] 36.0-66.0 Lymph % 27.7 % Normal 24.0-44.0 [place] % 7.4 % High 0.0-5.0 Eos % 2.0 % Normal 0.0-3.0 Baso % 0.7 % Normal 0.0-1.0 Immature Granulocyte % 0.4 % Normal 0-3.0 Nucleated Red Blood Cell % 0.0 % Normal 0-0 Neutrophils # 2.8 10 Normal 1.5-8.5 Lymph # 1.3 10 Low 1.5-5.0 [place] # 0.3 10 Normal 0.0-0.8 Eos # 0.1 10 Normal 0.0-0.5 Baso # 0.0 10 Normal 0.0-0.2 Laboratory test finding 09/03/2020 [facility] [address] [place] [address] (315)- - C Reactive Protein Quantitativ < 0.30 mg/dL Normal 0.0 0-0.30 Lyme Disease SCRN With Confirm 09/03/2020 [facility] [address] [place] [address] (315)- - Lyme Disease IgG/IgM Antibodie <0.91 ISR Normal 0.00- 0.90 2 Lyme Disease IgM Ab Quantitati <0.80 index Normal 0.00-0.79 3 Laboratory test finding 09/03/2020 [facility] [address] [place] [address] (315)- - Erythrocyte Sedimentation Rate 6 mm/hr Normal 0-20 1 Performed at: RN - [facility] [address] [id number] Sterile Process Tech: Deb Monzon MD, Phone: [phone] 2 Negative <0.91 Equivocal 0.91 - 1.09 Positive >1.09 3 Negative <0.80 Equivocal 0.80 - 1.19 Positive >1.19 . IgM levels may peak at 3-6 weeks post infection, then gradually decline. Procedures Date Code Description Status 09/03/2020 94669 MRI Lower Extremity Any Joint Co mpleted 09/03/2020 37962 MRI Lower Extremity Any Joint Co mpleted 09/03/2020 53568 MRI Upper Extremity Any Joint Co mpleted 08/27/2020 92244 X-Ray Knee Complete W/Obliques & Tunnel And/Or Standing Views Completed 08/27/2020 82796 X-Ray Finger(S) Two Views Comple [place] Description No Information Available Encounters Type Date Location Provider Dx Diagnosis Office Visit 08/27/2020 3:00p [place] Darron Cisse MD M25.561 Pain in right [...] 3:30 pm - Darron Cisse MD at [place] 08/27/2020 - Darron Cisse MD* M25.561 Pain in right knee* Follow up:* with [facility] after both mri's for results [facility] * M19.042 Primary osteoarthritis, left hand Functional Status Description No Information Available Mental Status Description No Information Available Referrals Refer to Dr Reason for Referral Status Appt Date Darron Cisse MD MRI'S APPROVED PER EDI Martin MRI OF RIGHT KNEE (26829) AND LEFT THUMB (36684) TO MRI. DG Created [facility], [address] [place] [address] [phone]
--- OUTSIDE RECORDS SUMMARY | 2020-11-09 11:13 | CCD ---
Author Author [facility] Organization [facility] Address Unknown Phone Unavailable Care Team Providers Care Leather Softener Name Role Phone Juliane Esposito Unavailable PROBLEMS Type Condition ICD9-CM Code [id number] Code Onset Dates Condition S tatus SNOMED Code Notes Problem Chronic constipation K59.09 Active 717874339 Problem Allergic rhinitis J30.9 Active 97220091 Problem Migraines G43.909 Active 11388288 Problem Acne vulgaris L70.0 Active 20634154 Problem Axillary lymphadenopathy R59.0 Active 4364836 05 Problem Lipid screening Z13.220 Active 243935274 Problem Mitral valve insufficiency, unspecified etiology I 34.0 Active 94850156 Problem MRSA (methicillin resistant staph aureus) culture positive Z22.322 Active 014965623 Problem Pectus excavatum Q67.6 Active 158070652 Problem Radha's thyroiditis E06.3 Active 75819604 Problem Colon cancer screening Z12.11 Active 812497718 Problem Breast cancer screening Z12.39 Active 31268228 1 Problem Cervical cancer screening Z12.4 Active 252741 001 Problem Esophageal dysphagia R13.10 Active 43069338 ALLERGIES No Known Allergies ENCOUNTERS from 1985 to 2020-10-05 Encounter Location Date Provider Diagnosis [address] [address] Sep, Juliane Esposito Abscess of back L02.212 IMMUNIZATIONS Vaccine Route Administration Date Status Influenza [...] Education Language: Question Answer Notes Languages spoken: Hungarian Spiritism: Question Answer Notes Spiritism 21 Temple Drug and Alcohol Question Answer Notes Total [...] REASON FOR REFERRAL No Information VITAL SIGNS Weight 121 lbs Sep, Height 61 in Sep, BMI 22.86 kg/m2 Sep, Heart Rate 105 /min Sep, Respiratory Rate 18 /min Sep, Temperature 98.3 degrees Fahrenheit Sep, Oximetry 100 Sep, Blood pressure systolic 122 mm Hg Sep, Blood pressure diastolic 70 mm Hg Sep, MEDICATIONS Medication SIG (Take, Route, Frequency, Duration) [...] No Results REASON FOR VISIT Sore on back MEDICAL (GENERAL) HISTORY Type Description Date Medical History Migraines Medical History Hashimotos sees Dr. Perez Simpson Medical History Allergic Rhinitis-bronchitis & pneumonia 5Y in a row Medical History Palpitations,tachycardia see s Dr. Kelly 2 Mitral Valve Insuffic., pectus excavatum, scoliosis Medical History MRSA @ [facility] 2014, 2015 again Surgical History Breast BIopsy-[facility] Goals Section No Information Health Concerns No Information MEDICAL EQUIPMENT No Information MENTAL STATUS No Information FUNCTIONAL STATUS No Information ASSESSMENTS Encounter Date Diagnosis Assessment Notes Treatment Notes Treatm ent Clinical Notes Sep, Abscess of back (ICD-10 - L02.212) Discussed with patient that from her description, this could have been an abscess, however it has significantly improved. will switch to Doxy for a week. Pt requested Diflucan as needed. Refill Bactroban and Hibiclens due to hx of MRSA. Also discussed with the patient that there is nothing to culture at this time and lesion does not need to be lanced PLAN OF TREATMENT Medication Medication Name Sig [...] directed Externally Daily for 30 days Sep, Treatment Notes Assessment Notes Clinical Notes Abscess of back Discussed with patient that from her description, this could have been an abscess, however it has significantly improved. will switch to Doxy for a week. Pt requested Diflucan as needed. Refill Bactroban and Hibiclens due to hx of MRSA. Also discussed with the patient that there is nothing to culture at this time and lesion does not need to be lanced Next Appt Details Provider Name:Hafsa Becker, 02-22 03:00:00 PM, [address] [place] [address], [phone], Insurance Providers Payer Name Payer Address Payer Phone Insured Name Patient Relati onship to Insured Coverage Start Date Coverage End Date [facility] [address] [address] [facility] [phone] MANOLO PATEL self
--- OUTSIDE RECORDS SUMMARY | 2020-11-09 11:13 | CCD | Continuity of Care Document ---
Author Organization Unknown Address Unknown Phone Unavailable Care Team Providers Care Plant Guard Name Role Phone Hafsa Becker AUTM [phone] Vaishali Teague MD AUTM [phone] Eder Garcia MD AUTM [phone] Alisia Cisse MD AUTM [phone] Problems Active Problems Provider Date Dyspnea Jacob [...] H/L Range Note CBC without Differential 09/03/2020 [facility] - not inter faced (315)- - White Blood Count 4.6 Low 5.0-10.0 Red Blood Count 4.06 4.00-5.40 Platelets 302 172-450 Hemoglobin 12.2 Hematocrit 37.4 CMP 09/03/2020 [facility] - not interfaced (315)- - Albumin Serum/Plasma 4.1 Alt - SGPT 13 Calcium Ser/Plasma Mass/Vol 8.7 Carbon Dioxide Ser/Plasm 26 Chloride Serum/Plasma 108 Alkaline Phosphatase 42 Potassium 3.7 Protein Total 7.0 Sodium 140 Ast - Sgot 11 BUN - Urea Nitrogen 12 Glucose 88 83-110 Creatinine For GFR 0.64 Lipid Profile/Cardiac Risk Pro 09/03/2020 [facility] - not interfaced (315)- - Triglycerides 78 <150 Cholesterol 144 <200 HDL 52 >40.0 LDL Cholesterol 76 Chol/HDL Ratio 2.769 <5 Laboratory test finding 09/03/2020 [facility] - not interf aced (315)- - Thyroid Stimulating Hormone 1.660 Free T4 0.93 Procedures Description No Information Available Medical Devices Description No Information Available Encounters Type Date Location Provider Dx Diagnosis Office Visit 11/04/2020 2:30p Main Office Jacob Malone MD R06.02 Shortness of breath R00.2 Palpitations R01.1 Cardiac murmur, unspecified R94.31 Abnormal electrocardiogram [ ECG] [EKG] Q67.6 Pectus excavatum Z01.810 Encounter for preprocedural cardiovascular examination Assessments Date Code Description Provider 11/04/2020 R06.02 Shortness of breath Jacob morales MD 11/04/2020 R00.2 Palpitations Jacob Malone MD 11/04/2020 R01.1 Cardiac murmur, unspecified Noah Malone MD 11/04/2020 R94.31 Abnormal electrocardiogram [ECG] [EKG] Jacob Malone MD 11/04/2020 Q67.6 Pectus excavatum Jacob Malone MD 11/04/2020 Z01.810 Encounter for preprocedural card iovascular examination Jacob Malone MD Plan of Treatment Future Appointment(s):* 12/15/2020 3:00 pm - ECHO at Main Office * 11/05/2020 3:00 pm - Stress Nuclear/Reg Treadmill at Main Office 11/04/2020 - Jacob Malone MD* R06.02 Shortness of breath* New Orders:* Treadmill, Scheduled: 11/05/20 * Recommendations:* In light of this effort symptom [...] intake of caffeinated beverages, alcohol, nicotine and nhon-mbh-zlycihg decongestants, pep pills, dietary aids etc. Discussed [...]
--- OUTSIDE RECORDS SUMMARY | 2020-11-09 11:14 | CCD ---
Continuity of Care Document (CCD) Created on: 08/27/2020 Maylin Pryor External Reference #: [id number] : 1985 Sex: Female Author Author Maylin CHAN MD Organization Unknown Address [address] [place] [address] Phone [phone] Problems Description No Information Available Social History Type Date Description Comments Sex Unknown Allergies, Adverse Reactions, Alerts Description No Information Available Medications Description No Information Available Immunizations Description No Information Available Vital Signs Description No Information Available Results Description No Information Available Procedures Date Code Description Status 08/27/2020 15966 X-Ray Knee Complete W/Obliques & Tunnel And/Or Standing Views Completed 08/27/2020 83742 X-Ray Finger(S) Two Views Comple maureen Medical Devices Description No Information Available Encounters Type Date Location Provider Dx Diagnosis Office Visit 08/27/2020 3:00p [place] Darron Chan MD M25.561 Pain in right knee M19.042 Primary osteoarthritis, left hand Assessments Date Code Description Provider 08/27/2020 M25.561 Pain in right knee Darron drake MD 08/27/2020 M19.042 Primary osteoarthritis, left bolton d Darron Chan MD Plan of Treatment Future Appointment(s):* 09/03/2020 8:45 am - Xiomara Ann PA-C at [place] 08/27/2020 - Darron Chan MD* M25.561 Pain in right knee* New Xrays:* MRI RT Knee, Ordered: 08/27/20 * Follow up:* with [facility] after both mri's for results [facility] * M19.042 Primary osteoarthritis, left hand* New Xrays:* Mri lt thumb, Ordered: 08/27/20 Functional Status Description No Information Available Mental Status Description No Information Available Referrals Description No Information Available
--- OUTSIDE RECORDS SUMMARY | 2020-11-09 11:14 | CCD | Continuity of Care Document ---
Author Author Maylin CHAN MD Organization Unknown Address [address] [place] [address] Phone [phone] Problems Description No Information Available Social History Type Date Description Comments Sex Unknown Allergies, Adverse Reactions, Alerts Description No Information Available Medications Description No Information Available Immunizations Description No Information Available Vital Signs Description No Information Available Results Description No Information Available Procedures Date Code Description Status 08/27/2020 88826 X-Ray Knee Complete W/Obliques & Tunnel And/Or Standing Views Completed 08/27/2020 88590 X-Ray Finger(S) Two Views Comple maureen Medical Devices Description No Information Available Encounters Type Date Location Provider Dx Diagnosis Office Visit 08/27/2020 3:00p [place] Darron Chan MD M25.561 Pain in right knee M19.042 Primary osteoarthritis, left hand Assessments Date Code Description Provider 08/27/2020 M25.561 Pain in right knee Darron drake MD 08/27/2020 M19.042 Primary osteoarthritis, left bolton d Darron Chan MD Plan of Treatment Future Appointment(s):* 09/03/2020 8:45 am - Xiomara Ann PA-C at [place] 08/27/2020 - Darron Chan MD* M25.561 Pain [...]
--- OUTSIDE RECORDS SUMMARY | 2020-11-09 11:14 | CCD ---
Author Author [facility] Organization [facility] Address Unknown Phone Unavailable Care Team Providers Care Check Embosser Name Role Phone Hafsa Becker Unavailable PROBLEMS Type Condition ICD9-CM Code [id number] Code Onset Dates Condition S tatus SNOMED Code Notes Problem Radha's thyroiditis E06.3 Active 35942994 Problem MRSA (methicillin resistant staph aureus) culture positive Z22.322 Active 357190764 Problem Acne vulgaris L70.0 Active 97491963 Problem Chronic constipation K59.09 Active 493850475 Problem Cervical cancer screening Z12.4 Active 339400 001 Problem Allergic rhinitis J30.9 Active 96231613 Problem Esophageal dysphagia R13.10 Active 01863167 Problem Migraines G43.909 Active 60632219 Problem Axillary lymphadenopathy R59.0 Active 5253579 05 Problem Lipid screening Z13.220 Active 320793450 Problem Colon cancer screening Z12.11 Active 403416033 Problem Breast cancer screening Z12.39 Active 94198413 1 ALLERGIES No Known Allergies ENCOUNTERS from 1985 to 2020-08-24 Encounter Location Date Provider Diagnosis [address] [address] Aug, Hafsa Becker Esophageal dysphagia R13.10 ; Annual phy sical exam Z00.00 ; Radha's thyroiditis E06.3 ; Chronic constipation K59.09 ; Migraines G43.909 ; Allergic rhinitis J30.9 ; Acne vulgaris L70.0 ; Cervical cancer screening Z12.4 ; Breast cancer screening Z12.39 ; Lipid screening Z13.220 and Colon cancer screening Z12.11 IMMUNIZATIONS Vaccine Route Administration Date Status Influenza [...] Education Language: Question Answer Notes Languages spoken: Bolivian Roman Catholic: Question Answer Notes Roman Catholic 21 Mosque Drug and Alcohol Question Answer Notes Total [...] No Information VITAL SIGNS Weight 121 lbs Aug, Height 61 in Aug, BMI 22.86 kg/m2 Aug, Heart Rate 90 /min Aug, Respiratory Rate 18 /min Aug, Temperature 99.0 degrees Fahrenheit Aug, Oximetry 100 Aug, Blood pressure systolic 110 mm Hg Aug, Blood pressure diastolic 70 mm Hg Aug, MEDICATIONS Medication SIG (Take, Route, Frequency, Duration) Start Date En d Date Status Colace 100 MG 1 capsule [...] Information RESULTS No Results REASON FOR VISIT AWV MEDICAL (GENERAL) HISTORY Type Description Date Medical History Migraines Medical History Hashimotos sees Dr. Perez Simpson Medical History Allergic Rhinitis-bronchitis & pneumonia 5Y in a row Medical History Palpitations,tachycardia see s Dr. Kelly 2 Mitral Valve Insuffic., pectus excavatum, scoliosis Medical History MRSA @ [facility] 2014, 2015 again Surgical History Breast BIopsy-[facility] Goals Section No Information Health Concerns No Information MEDICAL EQUIPMENT No Information MENTAL STATUS No Information FUNCTIONAL STATUS No Information ASSESSMENTS Encounter Date Diagnosis Notes Aug, Annual physical exam (ICD-10 - Z00.00) Aug, Esophageal dysphagia (ICD-10 - R13.10) Aug, Chronic constipation (ICD-10 - K59.09) Aug, Radha's thyroiditis (ICD-10 - E06.3) Aug, Breast cancer screening (ICD-10 - Z12.39 ) Aug, Colon cancer screening (ICD-10 - Z12.11) Aug, Lipid screening (ICD-10 - Z13.220) Aug, Allergic rhinitis (ICD-10 - J30.9) Aug, Migraines (ICD-10 - G43.909) Aug, Cervical cancer screening (ICD-10 - Z12. 4) Aug, Acne vulgaris (ICD-10 - L70.0) PLAN OF TREATMENT Medication Medication Name Sig [...] Twice a day MDD2 for 30 Days Treatment Notes Assessment Notes Clinical Notes Esophageal dysphagia Consulted GI Radha's thyroiditis F/up next week c DR. Cisse Migraines stable has 1-2/Month unpredictable, does get an aura/fatigue prior Cervical cancer screening Over due f/up; sister was 18 & diagnosed c cervical [facility]ness-Dr. Rabago Breast cancer screening NO [place]of [place] [address] [place]. Axillary nodules palpable on Rt. side so had Mammo. & US @ [facility] & mri a few years ago 5 maybe 2014, also had a biopsy. Her SBEs are abnormal fibrocystic, nipple discharge is gone. HEr mother & sister have had fibrocystic disease also. Colon cancer screening No family h/o gely yps or colon ca Treatment Notes Test Name Order Date CBC with Differential 2020-08-24 Comprehensive Metabolic Profile (CMP) 2020-08-24 FREE T4 & TSH PANEL 2020-08-24 LIPID PANEL (CARDIAC RISK) 2020-08-24 Next Appt Details 6 Months c SS Reason: Provider Name:Hafsa Becker, 02-22 03:00:00 PM, [address] [place], [address], Insurance Providers Payer Name Payer Address Payer Phone Insured Name Patient Relati onship to Insured Coverage Start Date Coverage End Date [facility] [address] [address] [facility] [phone] MANOLO PATEL
--- OUTSIDE RECORDS SUMMARY | 2020-11-09 11:14 | CCD ---
Author Author [facility] Organization [facility] Address Unknown Phone Unavailable Care Team Providers Care Systems Accountant Name Role Phone Derek Garcia MD Unavailable Unavailable Derek Garcia MD Unavailable Unavailable Derek Garcia MD Unavailable Unavailable Derek Garcia MD Unavailable Unavailable Derek Garcia MD Unavailable Unavailable Derek Garcia MD Unavailable Unavailable Derek Garcia MD Unavailable Unavailable Derek Garcia MD Unavailable Unavailable Derek Garcia MD Unavailable Unavailable Derek Garcia MD Unavailable Unavailable Derek Garcia MD Unavailable Unavailable Derek Garcia MD Unavailable Unavailable Derek Garcia MD Unavailable Unavailable Derek Garcia MD Unavailable Unavailable Derek Garcia MD Unavailable Unavailable Derek Garcia MD Unavailable Unavailable Derek Garcia MD Unavailable Unavailable Derek Garcia MD Unavailable Unavailable JoseDerek MD Unavailable Unavailable JoseDerek MD Unavailable Unavailable Jose S Eder CHAPIN Unavailable Unavailable Jose S Eder CHAPIN Unavailable Unavailable Jose, S Eder CHAPIN Unavailable Unavailable Jose S Eder CHAPIN Unavailable Unavailable Jose S Eder CHAPIN Unavailable Unavailable Jose S Eder CHAPIN Unavailable Unavailable Jose S Eder CHAPIN Unavailable Unavailable Jose, S Eder MD Unavailable Unavailable Jose S Eder CHAPIN Unavailable Unavailable Jose, S Eder CHAPIN Unavailable Unavailable Jose S Eder CHAPIN Unavailable Unavailable Jose S Eder CHAPIN Unavailable Unavailable Jose S Eder CHAPIN Unavailable Unavailable Jose S Eder CHAPIN Unavailable Unavailable Jose S Eder CHAPIN Unavailable Unavailable Jose S Eder CHAPIN Unavailable Unavailable Jose S Eder CHAPIN Unavailable Unavailable JoseDerek wilson MD Unavailable Unavailable JoseDerek wilson MD Unavailable Unavailable Derek Garcia MD Unavailable Unavailable Derek Garcia MD Unavailable Unavailable Derek Garcia MD Unavailable Unavailable Derek Garcia MD Unavailable Unavailable Derek Garcia MD Unavailable Unavailable Derek Garcia MD Unavailable Unavailable Derek Garcia MD Unavailable Unavailable Derek Garcia MD Unavailable Unavailable VISHAL SIMON MD Unavailable Unavailable VISHAL SIMON MD Unavailable Unavailable VISHAL SIMON MD Unavailable Unavailable VISHAL SIMON MD Unavailable Unavailable VISHAL SIMON MD Unavailable Unavailable VISHAL SIMON MD Unavailable Unavailable VISHAL SIMON MD Unavailable Unavailable VISHAL SIMON MD Unavailable Unavailable VISHAL SIMON MD Unavailable Unavailable VISHAL SIMON MD Unavailable Unavailable VISHAL SIMON MD Unavailable Unavailable VISHAL SIMON MD Unavailable Unavailable VISHAL SIMON MD Unavailable Unavailable VISHAL SIMON MD Unavailable Unavailable VISHAL SIMON MD Unavailable Unavailable VISHAL SIMON MD Unavailable Unavailable VISHAL SIMON MD Unavailable Unavailable VISHAL SIMON MD Unavailable Unavailable VISHAL SIMON MD Unavailable Unavailable VISHAL SIMON MD Unavailable Unavailable VISHAL SIMON MD Unavailable Unavailable VISHAL SIMON MD Unavailable Unavailable VISHAL SIMON MD Unavailable Unavailable VISHAL SIMON MD Unavailable Unavailable VISHAL SIMON MD Unavailable Unavailable VISHAL SIMON MD Unavailable Unavailable VISHAL SIMON MD Unavailable Unavailable VISHAL SIMON MD Unavailable Unavailable VISHAL SIMON MD Unavailable Unavailable VISHAL SIMON MD Unavailable Unavailable VISHAL SIMON MD Unavailable Unavailable VISHAL SIMON MD Unavailable Unavailable VISHAL SIMON MD Unavailable Unavailable VISHAL SIMON MD Unavailable Unavailable VISHAL SIMON MD Unavailable Unavailable VISHAL SIMON MD Unavailable Unavailable VISHAL SIMON MD Unavailable Unavailable VISHAL SIMON MD Unavailable Unavailable VISHAL SIMON MD Unavailable Unavailable VISHAL SIMON MD Unavailable Unavailable VIHSAL SIMON MD Unavailable Unavailable VISHAL SIMON MD Unavailable Unavailable VISHAL SIMON MD Unavailable Unavailable VISHAL SIMON MD Unavailable Unavailable VISHAL SIMON MD Unavailable Unavailable VISHAL SIMON MD Unavailable Unavailable VISHAL SIMON MD Unavailable Unavailable VISHAL SIMON MD Unavailable Unavailable VISHAL SIMON MD Unavailable Unavailable VISHAL SIMON MD Unavailable Unavailable VISHAL SIMON MD Unavailable Unavailable VISHAL SIMON MD Unavailable Unavailable VISHAL SIMON MD Unavailable Unavailable VISHAL SIMON MD Unavailable Unavailable VISHAL SIMON MD Unavailable Unavailable VISHAL SIMON MD Unavailable Unavailable VISHAL SIMON MD Unavailable Unavailable VISHAL SIMON MD Unavailable Unavailable VISHAL SIMON MD Unavailable Unavailable VISHAL SIMON MD Unavailable Unavailable VISHAL ISMON MD Unavailable Unavailable VISHAL SIMON MD Unavailable Unavailable VISHAL SIMON MD Unavailable Unavailable VISHAL SIMON MD Unavailable Unavailable VISHAL SIMON MD Unavailable Unavailable VISHAL SIMON MD Unavailable Unavailable VISHAL SIMON MD Unavailable Unavailable VISHAL SIMON MD Unavailable Unavailable VISHAL SIMON MD Unavailable Unavailable VISHAL SIMON MD Unavailable Unavailable VISHAL SIMON MD Unavailable Unavailable Swatsworth, R Hafsa PA Unavailable Unavailable Swatsworth, R Hafsa PA Unavailable Unavailable Swatsworth, R Hafsa PA Unavailable Unavailable Swatsworth, R Hafsa PA Unavailable Unavailable Swatsworth, R Hafsa PA Unavailable Unavailable Swatsworth, R Hafsa PA Unavailable Unavailable Swatsworth, R Hafsa PA Unavailable Unavailable Swatsworth, R Hafsa PA Unavailable Unavailable Swatsworth, R Hafsa PA Unavailable Unavailable Swatsworth, R Hafsa PA Unavailable Unavailable Swatsworth, R Hafsa PA Unavailable Unavailable Swatsworth, R Hafsa PA Unavailable Unavailable Swatsworth, R Hafsa PA Unavailable Unavailable Swatsworth, R Hafsa PA Unavailable Unavailable Swatsworth, R Hafsa PA Unavailable Unavailable Swatsworth, R Hafsa PA Unavailable Unavailable Swatsworth, R Hafsa PA Unavailable Unavailable Swatsworth, R Hafsa PA Unavailable Unavailable Swatsworth, R Hafsa PA Unavailable Unavailable Swatsworth, R Hafsa PA Unavailable Unavailable Swatsworth, R Hafsa PA Unavailable Unavailable Swatsworth, R Hafsa PA Unavailable Unavailable Swatsworth, R Hafsa PA Unavailable Unavailable Swatsworth, R Hafsa PA Unavailable Unavailable Swatsworth, R Hafsa PA Unavailable Unavailable Swatsworth, R Hafsa PA Unavailable Unavailable Swatsworth, R Hafsa PA Unavailable Unavailable Swatsworth, R Hafsa PA Unavailable Unavailable Swatsworth, R Hafsa PA Unavailable Unavailable Swatsworth, R Hafsa PA Unavailable Unavailable Swatsworth, R Hafsa PA Unavailable Unavailable Swatsworth, R Hafsa PA Unavailable Unavailable Swatsworth, R Hafsa PA Unavailable Unavailable Swatsworth, R Hafsa PA Unavailable Unavailable Swatsworth, R Hafsa PA Unavailable Unavailable Swatsworth, R Hafsa PA Unavailable Unavailable Swatsworth, R Hafsa PA Unavailable Unavailable Swatsworth, R Hafsa PA Unavailable Unavailable Swatsworth, R Hafsa PA Unavailable Unavailable Swatsworth, R Hafsa PA Unavailable Unavailable Swatsworth, R Hafsa PA Unavailable Unavailable Swatsworth, R Hafsa PA Unavailable Unavailable Swatsworth, R Hafsa PA Unavailable Unavailable Swatsworth, R Hafsa PA Unavailable Unavailable Swatsworth, R Hafsa PA Unavailable Unavailable Swatsworth, R Hafsa PA Unavailable Unavailable Swatsworth, R Hafsa PA Unavailable Unavailable Fish, B Darron CHAPIN Unavailable Unavailable Fish, B Darron CHAPIN Unavailable Unavailable Fish, B Darron CHAPIN Unavailable Unavailable Fish, B Darron CHAPIN Unavailable Unavailable Fish, B Darron CHAPIN Unavailable Unavailable Fish, B Darron CHAPIN Unavailable Unavailable Fish, B Darron CHAPIN Unavailable Unavailable Fish, B Darron CHAPIN Unavailable Unavailable Fish, B Darron CHAPIN Unavailable Unavailable Fish, B Darron CHAPIN Unavailable Unavailable Fish, B Darron CHAPIN Unavailable Unavailable Fish, B Darron CHAPIN Unavailable Unavailable Fish, B Darron CHAPIN Unavailable Unavailable Fish, B Darron CHAPIN Unavailable Unavailable Fish, Irene Rob MD Unavailable Unavailable Fish, B Darron CHAPIN Unavailable Unavailable Fish, B Darron CHAPIN Unavailable Unavailable Fish, B Darron CHAPIN Unavailable Unavailable Fish, B Darron CHAPIN Unavailable Unavailable Fish, B Darron CHAPIN Unavailable Unavailable Fish, B Darron CHAPIN Unavailable Unavailable Fish, B Darron CHAPIN Unavailable Unavailable Fish, B Darron CHAPIN Unavailable Unavailable Fish, B Darron CHAPIN Unavailable Unavailable Fish, B Darron CHAPIN Unavailable Unavailable Fish, B Darron MD Unavailable Unavailable Fish, B Darron CHAPIN Unavailable Unavailable Fish, B Darron CHAPIN Unavailable Unavailable Fish, B Darron CHAPIN Unavailable Unavailable Fish, B Darron CHAPIN Unavailable Unavailable Fish, B Darron CHAPIN Unavailable Unavailable Fish, B Darron CHAPIN Unavailable Unavailable Fish, B Darron CHAPIN Unavailable Unavailable Fish, B Darron CHAPIN Unavailable Unavailable Fish, B Darron CHAPIN Unavailable Unavailable Fish, B Darron CHAPIN Unavailable Unavailable Fish, B Darron CHAPIN Unavailable Unavailable Fish, B Darron CHAPIN Unavailable Unavailable Fish, B Darron CHAPIN Unavailable Unavailable Fish, B Darron CHAPIN Unavailable Unavailable Fish, B Darron CHAPIN Unavailable Unavailable Fish, B Darron CHAPIN Unavailable Unavailable Fish, B Darron CHAPIN Unavailable Unavailable Fish, B Darron CHAPIN Unavailable Unavailable Fish, B Darron CHAPIN Unavailable Unavailable Fish, B Darron CHAPIN Unavailable Unavailable Fish, B Darron CHAPIN Unavailable Unavailable Fish, B Darron CHAPIN Unavailable Unavailable Fish, B Darron CHAPIN Unavailable Unavailable Fish, B Darron CHAPIN Unavailable Unavailable Fish, B Darron CHAPIN Unavailable Unavailable Fish, B Darron CHAPIN Unavailable Unavailable Fish, B Darrno CHAPIN Unavailable Unavailable Fish, B Alisia CHAPIN Unavailable Unavailable Fish, B Alisia CHAPIN Unavailable Unavailable Fish, Irene Crump MD Unavailable Unavailable Fish, B Alisia CHAPIN Unavailable Unavailable Fish, B Alisia CHAPIN Unavailable Unavailable Fish, B Alisia CHAPIN Unavailable Unavailable Fish, B Alisia CHAPIN Unavailable Unavailable Fish, B Alisia CHAPIN Unavailable Unavailable Fish, B Alisia CHAPIN Unavailable Unavailable Fish, B Alisia CHAPIN Unavailable Unavailable Fish, B Alisia CHAPIN Unavailable Unavailable Fish, B Alisia CHAPIN Unavailable Unavailable Fish, B Alisia CHAPIN Unavailable Unavailable Fish, B Alisia CHAPIN Unavailable Unavailable Fish, B Alisia CHAPIN Unavailable Unavailable Fish, B Alisia CHAPIN Unavailable Unavailable Fish, B Alisia CHAPIN Unavailable Unavailable Fish, Irene Crump MD Unavailable Unavailable Fish, Irene Crump MD Unavailable Unavailable Fish, Irene Crump MD Unavailable Unavailable Fish, Irene Crump MD Unavailable Unavailable Fish, Irene Crump MD Unavailable Unavailable Fish, rIene Crump MD Unavailable Unavailable Fish, Irene Crump MD Unavailable Unavailable Fish, Irene Crump MD Unavailable Unavailable Fish, B Alisia CHAPIN Unavailable Unavailable Fish, B Alisia CHAPIN Unavailable Unavailable Fish, B Alisia CHAPIN Unavailable Unavailable Fish, B Alisia CHAPIN Unavailable Unavailable Fish, B Alisia CHAPIN Unavailable Unavailable Fish, B Alisia CHAPIN Unavailable Unavailable Fish, B Alisia CHAPIN Unavailable Unavailable Fish, B Alisia CHAPIN Unavailable Unavailable Fish, B Alisia CHAPIN Unavailable Unavailable Fish, B Alisia CHAPIN Unavailable Unavailable Fish, B Alisia CHAPIN Unavailable Unavailable Fish, B Alisia CHAPIN Unavailable Unavailable Fish, B Alisia CHAPIN Unavailable Unavailable Fish, B Alisia CHAPIN Unavailable Unavailable Fish, B Alisia CHAPIN Unavailable Unavailable Fish, B Alisia CHAPIN Unavailable Unavailable Fish, B Alisia CHAPIN Unavailable Unavailable Fish, B Alisia CHAPIN Unavailable Unavailable Fish, B Alisia CHAPIN Unavailable Unavailable Fish, B Alisia CHAPIN Unavailable Unavailable Fish, B Alisia CHAPIN Unavailable Unavailable Fish, B Alisia CHAPIN Unavailable Unavailable Fish, B Alisia CHAPIN Unavailable Unavailable Fish, B Alisia CHAPIN Unavailable Unavailable Fish, B Alisia CHAPIN Unavailable Unavailable Fish, B Alisia CHAPIN Unavailable Unavailable Fish, B Aliisa CHAPIN Unavailable Unavailable Fish, B Alisia CHAPIN Unavailable Unavailable Fish, B Alisia CHAPIN Unavailable Unavailable Fish, B Alisia CHAPIN Unavailable Unavailable Fish, B Alisia CHAPIN Unavailable Unavailable Fish, B Alisia CHAPIN Unavailable Unavailable Fish, B Alisia CHAPIN Unavailable Unavailable Fish, B Alisia CHAPIN Unavailable Unavailable Fish, B Alisia CHAPIN Unavailable Unavailable Fish, B Alisia CHAPIN Unavailable Unavailable Fish, B Alisia CHAPIN Unavailable Unavailable Fish, B Alisia CHAPIN Unavailable Unavailable Fish, B Alisia CHAPIN Unavailable Unavailable COOK, B MARCO A INDUSTRIAL LABORER Unavailable Unavailable COOK, B MARCO A INDUSTRIAL LABORER Unavailable Unavailable COOK, B MARCO A INDUSTRIAL LABORER Unavailable Unavailable COOK, B MARCO A INDUSTRIAL LABORER Unavailable Unavailable COOK, B MARCO A INDUSTRIAL LABORER Unavailable Unavailable COOK, B MARCO A INDUSTRIAL LABORER Unavailable Unavailable COOK, B MARCO A INDUSTRIAL LABORER Unavailable Unavailable COOK, B MARCO A INDUSTRIAL LABORER Unavailable Unavailable COOK, B MARCO A INDUSTRIAL LABORER Unavailable Unavailable COOK, B MARCO A INDUSTRIAL LABORER Unavailable Unavailable COOK, B MARCO A INDUSTRIAL LABORER Unavailable Unavailable COOK, B MARCO A INDUSTRIAL LABORER Unavailable Unavailable COOK, B MARCO A INDUSTRIAL LABORER Unavailable Unavailable COOK, B MARCO A INDUSTRIAL LABORER Unavailable Unavailable COOK, B MARCO A INDUSTRIAL LABORER Unavailable Unavailable COOK, B MARCO A INDUSTRIAL LABORER Unavailable Unavailable COOK, B MARCO A INDUSTRIAL LABORER Unavailable Unavailable COOK, B MARCO A INDUSTRIAL LABORER Unavailable Unavailable COOK, B MARCO A INDUSTRIAL LABORER Unavailable Unavailable COOK, B MARCO A INDUSTRIAL LABORER Unavailable Unavailable COOK, B MARCO A INDUSTRIAL LABORER Unavailable Unavailable COOK, B MARCO A INDUSTRIAL LABORER Unavailable Unavailable COOK, B MARCO A INDUSTRIAL LABORER Unavailable Unavailable COOK, B MARCO A INDUSTRIAL LABORER Unavailable Unavailable COOK, B MARCO A INDUSTRIAL LABORER Unavailable Unavailable COOK, B MARCO A INDUSTRIAL LABORER Unavailable Unavailable COOK, B MARCO A INDUSTRIAL LABORER Unavailable Unavailable COOK, B MARCO A INDUSTRIAL LABORER Unavailable Unavailable COOK, B MARCO A INDUSTRIAL LABORER Unavailable Unavailable COOK, B MARCO A INDUSTRIAL LABORER Unavailable Unavailable COOK, B MARCO A INDUSTRIAL LABORER Unavailable Unavailable COOK, B MARCO A INDUSTRIAL LABORER Unavailable Unavailable COOK, B MARCO A INDUSTRIAL LABORER Unavailable Unavailable COOK, B MARCO A INDUSTRIAL LABORER Unavailable Unavailable COOK, B MARCO A INDUSTRIAL LABORER Unavailable Unavailable COOK, B MARCO A INDUSTRIAL LABORER Unavailable Unavailable COOK, B MARCO A INDUSTRIAL LABORER Unavailable Unavailable COOK, B MARCO A INDUSTRIAL LABORER Unavailable Unavailable COOK, B MARCO A INDUSTRIAL LABORER Unavailable Unavailable COOK, B MARCO A INDUSTRIAL LABORER Unavailable Unavailable COOK, B MARCO A INDUSTRIAL LABORER Unavailable Unavailable COOK, B MARCO A INDUSTRIAL LABORER Unavailable Unavailable COOK, B MARCO A INDUSTRIAL LABORER Unavailable Unavailable COOK, B MARCO A INDUSTRIAL LABORER Unavailable Unavailable COOK, B MARCO A INDUSTRIAL LABORER Unavailable Unavailable COOK, B MARCO A INDUSTRIAL LABORER Unavailable Unavailable COOK, B MARCO A INDUSTRIAL LABORER Unavailable Unavailable COOK, B MARCO A INDUSTRIAL LABORER Unavailable Unavailable COOK, B MARCO A INDUSTRIAL LABORER Unavailable Unavailable COOK, B MARCO A INDUSTRIAL LABORER Unavailable Unavailable COOK, B MARCO A INDUSTRIAL LABORER Unavailable Unavailable COOK, B MARCO A INDUSTRIAL LABORER Unavailable Unavailable COOK, B MARCO A INDUSTRIAL LABORER Unavailable Unavailable COOK, B MARCO A INDUSTRIAL LABORER Unavailable Unavailable COOK, B MARCO A INDUSTRIAL LABORER Unavailable Unavailable COOK, B MARCO A INDUSTRIAL LABORER Unavailable Unavailable COOK, B MARCO A INDUSTRIAL LABORER Unavailable Unavailable COOK, B MARCO A INDUSTRIAL LABORER Unavailable Unavailable COOK, B MARCO A INDUSTRIAL LABORER Unavailable Unavailable COOK, B MARCO A INDUSTRIAL LABORER Unavailable Unavailable COOK, B MARCO A INDUSTRIAL LABORER Unavailable Unavailable COOK, B MARCO A INDUSTRIAL LABORER Unavailable Unavailable COOK, B MARCO A INDUSTRIAL LABORER Unavailable Unavailable COOK, B MARCO A INDUSTRIAL LABORER Unavailable Unavailable Gareth RODRIGUEZ MD Unavailable Unavailable Gareth RODRIGUEZ MD Unavailable Unavailable Gareth RODRIGUEZ MD Unavailable Unavailable Gareth RODRIGUEZ MD Unavailable Unavailable Gareth RODRIGUEZ MD Unavailable Unavailable Gareth RODRIGUEZ MD Unavailable Unavailable Gareth RODRIGUEZ MD Unavailable Unavailable Gareth RODRIGUEZ MD Unavailable Unavailable Gareth RODRIGUEZ MD Unavailable Unavailable Gareth RODRIGUEZ MD Unavailable Unavailable Gareth RODRIGUEZ MD Unavailable Unavailable Gareth RODRIGUEZ MD Unavailable Unavailable Gareth RODRIGUEZ MD Unavailable Unavailable Gareth RODRIGUEZ MD Unavailable Unavailable Gareth RODRIGUEZ MD Unavailable Unavailable Gareth RODRIGUEZ MD Unavailable Unavailable Gareth RODRIGUEZ MD Unavailable Unavailable Gareth RODRIGUEZ MD Unavailable Unavailable Gareth RODRIGUEZ MD Unavailable Unavailable Gareth RODRIGUEZ MD Unavailable Unavailable Gareth RODRIGUEZ MD Unavailable Unavailable Gareth RODRIGUEZ MD Unavailable Unavailable Gareth RODRIGUEZ MD Unavailable Unavailable RODRIGUEZ, E JOS CHAPIN Unavailable Unavailable RODRIGUEZ, E JOS CHAPIN Unavailable Unavailable RODRIGUEZ, E JOS MD Unavailable Unavailable RODRIGUEZ, E JOS CHAPIN Unavailable Unavailable RODRIGUEZ, E JOS MD Unavailable Unavailable RODRIGUEZ, E JOS MD Unavailable Unavailable RODRIGUEZ, E JOS MD Unavailable Unavailable RODRIGUEZ, E JOS MD Unavailable Unavailable RODRIGUEZ, E JOS MD Unavailable Unavailable RODRIGUEZ, E JOS MD Unavailable Unavailable RODRIGUEZ, E JOS MD Unavailable Unavailable RODRIGUEZ, E JOS MD Unavailable Unavailable RODRIGUEZ, E JOS MD Unavailable Unavailable RODRIGUEZ, E JOS MD Unavailable Unavailable RODRIGUEZ, E JOS MD Unavailable Unavailable RODRIGUEZ, E JOS MD Unavailable Unavailable RODRIGUEZ, E JOS MD Unavailable Unavailable RODRIGUEZ, E JOS MD Unavailable Unavailable RODRIGUEZ, E JOS MD Unavailable Unavailable RODRIGUEZ, E JOS MD Unavailable Unavailable RODRIGUEZ, E JOS MD Unavailable Unavailable RODRIGUEZ, E JOS MD Unavailable Unavailable RODRIGUEZ, E JOS MD Unavailable Unavailable RODRIGUEZ, E JOS MD Unavailable Unavailable RODRIGUEZ, E JOS MD Unavailable Unavailable RODRIGUEZ, E JOS MD Unavailable Unavailable RODRIGUEZ, E JOS MD Unavailable Unavailable RODRIGUEZ, E JOS CHAPIN Unavailable Unavailable RODRIGUEZ, E JOS MD Unavailable Unavailable RODRIGUEZ, E JOS MD Unavailable Unavailable RODRIGUEZ, E JOS MD Unavailable Unavailable RODRIGUEZ, E JOS MD Unavailable Unavailable RODRIGUEZ, E JOS MD Unavailable Unavailable RODRIGUEZ, E JOS MD Unavailable Unavailable Re-disclosure Warning The records that you are about to access may contain information from federally-assisted alcohol or drug abuse programs. If such information is present, then the following federally mandated warning applies: This information has been disclosed to you from records protected by federal confidentiality rules (42 CFR part 2). The federal rules prohibit you from making any further disclosure of this information unless further disclosure is expressly permitted by the written consent of the person to whom it pertains or as otherwise permitted by 42 CFR part 2. A general authorization for the release of medical or other information is NOT sufficient for this purpose. The Federal rules restrict any use of the information to criminally investigate or prosecute any alcohol or drug abuse patient.The records that you are about to access may contain highly sensitive health information, the redisclosure of which is protected by Article 27-F of the [facility] Public Health law. If you continue you may have access to information: Regarding HIV / AIDS; Provided by facilities licensed or operated by the [facility] Office of Mental Health; or Provided by the [place] Office for People With Developmental Disabilities. If such information is present, then the following [facility] mandated warning applies: This information has been disclosed to you from confidential records which are protected by state law. State law prohibits you from making any further disclosure of this information without the specific written consent of the person to whom it pertains, or as otherwise permitted by law. Any unauthorized further disclosure in violation of state law may result in a fine or prison sentence or both. A general authorization for the release of medical or other information is NOT sufficient authorization for further disc losure. Family History Family Member Name Family Member Gender Family Member Status Date o f Status Description Data Source(s) Unknown Male Problem [facility] ([facility]) Unknown Male Problem [facility] ([facility]) Encounters Encounter Providers Location Date Indications Data Source(s ) Outpatient Attender: JOS RODRIGUEZ MD Main Office 11/04/2020 01:30:00 PM EST [facility] ([facility]) Outpatient Attender: JOS SIMON MDReferrer: Hafsa rome BERNABE 11/03/2020 12:36:06 PM EST [facility] Recurring Patient Referrer: Darron Cisse MD 11/02/2020 02:5 1:42 PM EST [facility] Outpatient Attender: Eder Garcia MD Main Office 10/08/2020 12:15:00 PM EST [facility] ([facility]) Recurring Patient Referrer: Darron Cisse MD 10/06/2020 07:2 5:18 AM EST [facility] [place] [address] [facility] [place] [address] 10/01/2020 12:00:00 AM EST eCW1 ([facility]) [place] [address] [facility] [place] [address] 10/01/2020 12:00:00 AM EST eCW1 ([facility]) Recurring Patient Referrer: Darron Cisse MD 09/22/2020 03:5 1:23 PM EST [facility] Recurring Patient Referrer: Darron Cisse MD 09/21/2020 03:2 1:48 PM EST [facility] Outpatient Attender: Darron Cisse MD Physical Therapy 09/11/2020 0 2:30:00 PM EST [facility] ([facility]) [place] [address] [facility] [address] 09/04/2020 12:00:00 AM EST eCW1 ([facility]) OFFICE OUTPATIENT NEW 30 MINUTES Attender: Darron Cisse MD Physic al Therapy 08/27/2020 02:00:00 PM EST [facility] ([facility]) [place] [address] [facility] [address] 08/24/2020 12:00:00 AM EST [facility]CW1 ([facility]) [place] [address] [facility] [address] 07/24/2020 12:00:00 AM EDT eCW1 ([facility]) Outpatient Attender: Alisia Cisse MD Physical Therapy 05/04 11:45:00 AM EDT [facility] ([facility]) [facility] [place] [address] [facility] [address] 01/27/2020 12:00:00 AM EDT eCW1 ([facility]) [facility] [place] [address] [facility] [address] 01/24/2020 12:00:00 AM EDT eCW1 ([facility]) Outpatient Attender: MARCO A GRIER NP Physical Therapy 12/05/2019 0 2:30:00 PM EST [facility] ([facility]) Immunizations Vaccine Date Status Description Data Source(s) influenza, recombinant, quadrIvalent,injectable, prese rvative free 08/11/2020 03:33:00 PM EDT completed eCW1 ([facility]) influenza, recombinant, quadrIvalent,injectable, prese rvative free 08/11/2020 03:33:00 PM EDT completed eCW1 ([facility]) influenza, recombinant, quadrIvalent,injectable, prese rvative free 08/11/2020 03:33:00 PM EDT completed eCW1 ([facility]) influenza, recombinant, quadrIvalent,injectable, prese rvative free 08/11/2020 03:33:00 PM EDT completed eCW1 ([facility]) IIV3. This is one of two codes replacing CVX 15, which is being retired. 10/03/2019 03:43:00 PM EST completed eCW1 ([facility]) IIV3. This is one of two codes replacing CVX 15, which is being retired. 10/03/2019 03:43:00 PM EST completed eCW1 ([facility]) IIV3. This is one of two codes replacing CVX 15, which is being retired. 10/03/2019 03:43:00 PM EST completed eCW1 ([facility]) IIV3. This is one of two codes replacing CVX 15, which is being retired. 10/03/2019 03:43:00 PM EST completed eCW1 ([facility]) IIV3. This is one of two codes replacing CVX 15, which is being retired. 10/03/2019 03:43:00 PM EST completed eCW1 ([facility]) INFLUENZA VIRUS VACCINE QUADRIVAL [id number](6 MOS AND UP)/PF 10/03/2019 12:00:00 AM EST completed [facility] Medications Medication Brand Name Start Date Product Form Dose Route Admi nistrative Instructions Pharmacy Instructions Status Indications Reaction Description Data Source(s) Ascorbic Acid 60 MG / Beta Carotene 5000 UNT / Copper Sulfate 40 MG / dl-alpha tocopheryl acetate 30 UNT / Sodium Selenite 0.04 MG / Zinc Oxide 40 MG Oral Tablet Multivitamin Adults 11/03/2020 12:00:00 AM EST ORAL active [facility] ([facility]) Levothyroxine Sodium 0.025 MG Oral Tablet Levothyroxine Sodi um 11/03/2020 12:00:00 AM EST ORAL active M EDENT ([facility]) Sumatriptan 50 MG Oral Tablet Sumatriptan Succinate 11/03/2020 1 2:00:00 AM EST active [facility] ( [facility]) Omeprazole 20 MG Delayed Release Oral Tablet [Prilosec] Pril osec OTC 11/02/2020 12:00:00 AM EST ORAL active M EDENT ([facility]) 40 mg 10/26/2020 12:00:00 AM EST capsule,delayed release (DR/EC) 30 TAKE ONE CAPSULE BY MOUTH EVERY MORNING TAKE ONE CAPSULE BY MOUTH EVERY MORNING SOLD: 10/27/2020 [facility] Omeprazole 40 MG Delayed Release Oral Capsule Omeprazole 10/08/2020 12:00:00 AM EST ORAL active MEDENT ([facility]) doxycycline hyclate 100 MG Oral Capsule Doxycycline Hy clate 100 MG Doxycycline Hyclate 100 MG 10/01/2020 12:00:00 AM EST 1.0 {capsule} active Doxycycline Hyclate 100 MG eCW1 ([facility]) chlorhexidine gluconate 40 MG/ML Medicat ed Liquid Soap [Hibiclens] Hibiclens 4 % Hibiclens 4 % 10/01/2020 12:00:00 AM EST act layla Hibiclens 4 % eCW1 ([facility]) 2 % 10/01/2020 12:00:00 AM EST ointment 22 APPLY THIN LAYER TO LESION ON BACK THREE TIMES A DAY APPLY THIN LAYER TO LESION ON BACK THREE TIMES A DAY SOLD: 10/01/2020 [facility] doxycycline hyclate 100 MG Oral Capsule DOXYCYCLINE HYCLATE 10/01/2020 12:00:00 AM EST capsule 14 TAKE ONE CAPSULE BY MOUTH TW ICE A DAY TAKE ONE CAPSULE BY MOUTH TWICE A DAY SOLD: 10/01/2020 [facility] Fluconazole 150 MG Oral Tablet [Diflucan] Diflucan 150 MG Di flucan 150 MG 10/01/2020 12:00:00 AM EST 1.0 {tablet} active Diflucan 150 MG eCW1 ([facility]) doxycycline hyclate 100 MG Oral Capsule Doxycycline Hy clate 100 MG Doxycycline Hyclate 100 MG 10/01/2020 12:00:00 AM EST 1.0 {capsule} active Doxycycline Hyclate 100 MG eCW1 ([facility]) 150 mg 10/01/2020 12:00:00 AM EST tablet 2 TAKE ONE TABLET BY MOUTH AT ONSET OF SYMPTOMS - REPEAT AFTER 72 HOURS IF YOUR SYMPTOMS PERSIST TAKE ONE TABLET BY MOUTH AT ONSET OF SYMPTOMS - REPEAT AFTER 72 HOURS IF YOUR SYMPTOMS PERSIST SOLD: 10/01/2020 [facility] Mupirocin 0.02 MG/MG Topical Ointment Mupirocin 2 % Mupiroci n 2 % 10/01/2020 12:00:00 AM EST active Mupiroci n 2 % eCW1 ([facility]) Fluconazole 150 MG Oral Tablet [Diflucan] Diflucan 150 MG Di flucan 150 MG 10/01/2020 12:00:00 AM EST 1.0 {tablet} active Diflucan 150 MG eCW1 ([facility]) chlorhexidine gluconate 40 MG/ML Medicat ed Liquid Soap [Hibiclens] Hibiclens 4 % Hibiclens 4 % 10/01/2020 12:00:00 AM EST act layla Hibiclens 4 % eCW1 ([facility]) Mupirocin 0.02 MG/MG Topical Ointment Mupirocin 2 % Mupiroci n 2 % 10/01/2020 12:00:00 AM EST active Mupiroci n 2 % eCW1 ([facility]) 25 mcg 09/10/2020 12:00:00 AM EST tablet 90 TAKE ONE TABLET BY MOUTH EVERY DAY TAKE ONE TABLET BY MOUTH EVERY DAY SOLD: 09/10/2020 [facility] 60 mcg (15 mcg x 4)/0.5 mL 08/11/2020 12:00:00 AM EDT suspen rosangela 0 INJECT 0.5ML INTRAMUSCULARLY BY RPH INJECT 0.5ML INTRAMUSCULARLY BY RPH SOLD: 08/11/2020 [facility] . UNIT 08/11/2020 12:00:00 AM EDT Injectable 1 RP H ADMINISTERED RPH ADMINISTERED SOLD: 08/11/2020 [facility] 25 mcg 05/26/2020 12:00:00 AM EDT tablet 90 TAKE ONE TABLET BY MOUTH EVERY DAY TAKE ONE TABLET BY MOUTH EVERY DAY SOLD: 05/26/2020 [facility] 25 mcg 02/13/2020 12:00:00 AM EDT tablet 90 TAKE ONE TABLET BY MOUTH EVERY DAY, MAXIMUM DAILY DOSE = ONE TABLET TAKE ONE TABLET BY MOUTH EVERY DAY, MAXI MUM DAILY DOSE = ONE TABLET SOLD: 02/13/2020 [facility] . UNIT 10/03/2019 12:00:00 AM EST Injectable 1 RPH ADMINISTERED IMMUNIZATION RPH ADMINISTERED IMMUNIZATION SOLD: 10/03/2019 [facility] Insurance Providers Payer name Policy type / Coverage type Policy ID Covered alliance party ID Covered alliance party's relationship to flores Policy Flores Plan Information [facility] [id number] [facility] [id number] SELF [id number] ANSI-Commercial [id number] ANSI-Commercial [id number] [employer] (pr) [facility] Part B [id number] Self [id number] Umr (pr) Commercial [id number] Self [id number] ANSI-Commercial [id number] ANSI-Commercial [id number] ANSI-Commercial [id number] ANSI-Commercial [id number] [employer] (pr) [facility] Part B [id number] Self [id number] ANSI-Commercial [id number] [facility] [id number] SP [id number] Commercial [id number] Self [id number] [employer] [id number] SP [id number] [employer] (pr) Commercial [id number] Self [id number] [employer] (pr) Commercial [id number] Self [id number] [employer] (pr) Commercial [id number] Self [id number] [employer] [id number] SP [id number] [employer] (pr) Commercial [id number] Self [id number] [employer] [id number] SP [id number] [employer] (pr) Commercial [id number] Self [id number] [employer] U [id number] Self [id number] [employer] [id number] SP [id number] [facility] -CLINIC [id number] 18 [id number] [place] O [id number] S [id number] [place] [id number] SP [id number] [employer] EXCHANGE (236) [id number] 1 [id number] AMADOU (192) [id number] 1 [id number] [employer] EXCHANGE U [id number] Self [id number] [facility] [place] X[place] MAN [id number] 18 [id number] [place] PPO 302/307 [id number] [id number] AMADOU [id number] SP [id number] [facility] [place] [facility] [id number] 18 [id number] [facility] [place] [facility] [id number] 18 [id number] EXCELL[employer] BCBS P [id number] P VYS [id number] BLUE CROSS BLUE SHIELD-O/P [id number] 01 [id number] BLUE CROSS BLUE SHIELD-O/P [id number] Problems, Conditions, and Diagnoses Code Display Name Description Problem Type Effective Dates Data Source(s) 220302774 Electrocardiogram abnormal Electrocardiogram abnormal Problem 11/04/2020 12:00:00 AM EST [facility] ([facility]) [id number] Pectus excavatum Pectus excavatum Problem 11/04/2020 12 :00:00 AM EST [facility] ([facility]) [id number] Preoperative cardiovascular examination Preoperative cardiovascular examination Problem 11/04/2020 12:00:00 AM EST [facility] ([facility] [id number] Palpitations Palpitations Problem 11/04/2020 12:00:00 A M EST MED[facility] ([facility]) [id number] Heart murmur Heart murmur Problem 11/04/2020 12:00:00 A M EST [facility] ([facility]) [id number] Dyspnea Dyspnea Problem 11/04/2020 12:00:00 AM ES T MED[facility] ([facility]) [id number] Dysphagia Dysphagia Problem 10/08/2020 12:00:00 AM ES T MEDENT ([facility]) Q67.6 [id number] Pectus excavatum Problem 09/09/2020 12:00:00 AM EST eCW1 ([facility]) I34.0 [id number] Mitral valve insufficiency, unspecified e tiology Problem 09/09/2020 12:00:00 AM EST eCW1 ([facility]) R13.10 [id number] Esophageal dysphagia Problem 08/24/2020 12:0 0:00 AM EST eCW1 ([facility]) Surgeries/Procedures Procedure Description Date Indications Data Source(s) CV STRS TST XERS&/OR RX CONT ECG PHYS SI&R 11/05/2020 12:00:00 AM EST MED[facility] ([facility]) ECG ROUTINE ECG W/LEAST 12 LDS W/I&R 11/04/2020 12:00: 00 AM EST [facility] ([facility]) MRI Upper Extremity Any Joint 09/03/2020 12:00:[address] [facility] ([facility] ) MRI Lower Extremity Any Joint 09/03/2020 12:00:[address] [facility] ([facility] ) MRI Lower Extremity Any Joint 09/03/2020 12:00:[address] [facility] ([facility] ) RADEX FINGR MINIMUM 2 VIEWS 08/27/2020 12:00:00 AM EST MEDENT ([facility]) RADIOLOGIC EXAM KNEE COMPLETE 4/MORE VIEWS 08/27/2020 12:00:00 AM EST [facility] ([facility]) Echography Soft Tissue Hand & Neck 05/04/2020 12:00:00 AM EDT MED[facility] ([facility]) Results ID Date Data Source [id number] 11/04/2020 02:15:00 PM EST [facility] Name Value Range Interpretation Code Description Data Dipika rce(s) Supporting Document(s) SARS coronavirus 2 RNA Not Detected [facility] This lab was ordered by [facility] and reported by [facility]. ID Date Data Source [id number] 11/03/2020 12:36:06 PM EST [facility], PCName: Manolo PatelDOB: 1985Provider: Vaishali Simon: 11/02/2020 Reason For VisitAlirakan Patel is here today for Left thumb. Manolo Patel is a new patient and Manolo Patel is here for a second opinion. Patient has been seeing [facility]. Manolo complains of experiencing pain and weakness. She notes tingling when overusing her thumb. She had x-rays and MRI- brought today. Other DOI/DOO: No injury- onset while raking December 2019. ([employer]HE[employer] BU[employer]ER). Patient is working at this time at regular duty. PlanHISTORY: The patient developed left thumb discomfort while raking in December 2019, although she denies any specific injury. She stated that it felt as though she broken her thumb, but specifically no trauma. No history of trauma prior to that either on the left thumb. She has had improvement in the discomfort, and initially was more distal at the MCP joint level, now is more proximal, and she indicates that thenar eminence region. It's worse with overuse. She reports some occasional numbness to the radial side of the thumb. Otherwise no significant numbness.EXAM: The patient appears well-developed, well-nourished, and in no acute distress. The patient's body habitus is approximately normal weight. The patient is oriented to person, place and time. The patient's mood is appropriate to situation. The patient's coordination is normal.Bilateral upper extremities show no deformities, no skin lesions and full range of motion of elbows, wrists and hands without significant discomfort. The patient is neurovascularly intact to light touch and has brisk capillary refill to all digits. No cervical discomfort. 5 out of 5 motor strength, negative Tinel's test at the wrist and elbow. I am unable to elicit any pain whatsoever on exam today. There are no signs of disuse. There are no dystrophic changes. There is no allodynia. There are no skin changes. No thumb MCP instability. Mild palpable prominence at ulnar collateral ligament insertion site, but no instability. No pain at the trapezium.X-RAYS: X-rays were visualized, and interpreted in the office today for diagnostic purposes of the left thumb. Views: AP, Lateral and oblique. The x-rays reveal normal alignment, and normal bony ossification. There is no fracture, dislocation, or subluxation. ASSESSMENT/PLAN: -Left thumb pain of uncertain etiology-No abnormalities on exam findings, mild palpable prominence at thumb UCL insertion at proximal phalanx, where there is radiographic findings of a suspected old ulnar collateral ligament avulsionMRI thumb shows trapezium cystLPN in [place], sister of LYNNETTE Monroy BI think her left thumb UCL avulsion is a chronic finding, may possibly have been aggravated by the raking, but given that there is no instability, I do not think that there is any reason to consider surgical excision. Cortisone injection could be considered if it worsens. 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 Her radiologist MRI reading talks about getting histologic biopsy, and I truly don't understand why there is any reference, as there is no soft tissue mass. I discussed this with the patient.Otherwise, I unfortunately do not have an easy explanation and therefore no solution to the patient's symptoms. However, as the patient has no significant exam abnormalities, I'm hopeful that symptoms will resolve with time. Anti-inflammatory medication may be trialed. Therapy could be considered, although certainly without any definitive indication or guarantee that it would be of use. Nerve studies could be considered as well in the future.She'll call for follow-up if her symptoms worsen, selected examine her when she has discomfort, she has none today.The patient was provided with my office contact information with telephone numbers. Should there be any concerns or change in symptoms, for which the patient would like to see me again sooner, our office may be contacted to be seen at any point. Work / School NoteThe percentage of temporary impairment is 0%. The patient is not working at this time. DisclaimersThis document was dictated and electronically signed using [employer] software. A reasonable attempt at proof reading has been made to minimize errors. Please call with any questions. Signatures Electronically signed by : Vaishali Simon M.D.; Nov 03 2020 12:36PM EST (Author) Name Value Range Interpretation Code Description Data Dipika rce(s) Supporting Document(s) ID Date Data Source [id number] 10/24/2020 12:00:00 AM EST [facility] Name Value Range Interpretation Code Description Data Dipika rce(s) Supporting Document(s) SARS-CoV2 Rapid Antigen [facility] and reported by [facility]. ID Date Data Source [id number] 09/03/2020 12:39:00 PM EST MED[facility] ([facility]) Name Value Range Interpretation Code Description Data Dipika rce(s) Supporting Document(s) Erythrocyte sedimentation rate by Westergren method 6 mm/hr 0-20 [facility] ([facility]) ID Date Data Source [id number] 09/03/2020 12:39:00 PM EST [facility] ([facility]) Name Value Range Interpretation Code Description Data Dipika rce(s) Supporting Document(s) Lyme Disease IgG/IgM Antibodie Laboratory test result 0.00-0.90 [facility] ([facility]) <content>Negative <0.91</content >
<content>Equivocal 0.91 - 1.09</content>
<content>Positive >1.09</content>
<content></content> Lyme Disease IgM Ab Quantitati Laboratory test result 0.00-0.79 [facility] ([facility]) <content>Negative <0.80</content >
<content>Equivocal 0.80 - 1.19</content>
<content>Positive >1.19</content>
<content>.</content>
<content>IgM levels may peak at 3-6 weeks post infection, then</content>
<content>gradually decline.</content>
<content></content> ID Date Data Source [id number] 09/03/2020 12:39:00 PM EST [facility] ([facility]) Name Value Range Interpretation Code Description Data Dipika rce(s) Supporting Document(s) C reactive protein [Mass/volume] in Serum or Plasma by High sensitivity method Laboratory test result 0.00-0.30 [facility] ([facility]) ID Date Data Source [id number] 09/03/2020 12:39:00 PM EST [facility] ([facility]) Name Value Range Interpretation Code Description Data Dipika rce(s) Supporting Document(s) White Blood Count 4.6 10 4.0-10.0 [facility] ([facility]) Red Blood Count 4.06 10 4.00-5.40 [facility] ([facility]) Hemoglobin 12.2 g/dL 12.0-15.5 [facility] ([facility]) Hematocrit 37.4 % 36.0-47.0 [facility] ([facility]) Mean Corpuscular Volume 92.1 fl 80.0-96.0 M EDENT ([facility]) Mean Corpuscular HGB Conc 32.6 g/dL 32.0-36.5 [facility] ([facility]) Mean Corpuscular Hemoglobin 30.0 pg 27.0-33.0 [facility] ([facility]) Red Cell Distribution Width 12.6 % 11.5-14.5 [facility] ([facility]) Platelet Count, Automated 302 10 150-450 [facility] ([facility]) Neutrophils % 61.8 % 36.0-66.0 [facility] ([facility]) Lymph % 27.7 % 24.0-44.0 [facility] ([facility]) [place] % 7.4 % 0.0-5.0 [facility] ([facility]) Eos % 2.0 % 0.0-3.0 [facility] ([facility]) Baso % 0.7 % 0.0-1.0 [facility] ([facility]) Immature Granulocyte % 0.4 % 0-3.0 [facility] ([facility]) Nucleated Red Blood Cell % 0.0 % 0-0 MED ENT ([facility]) Neutrophils # 2.8 10 1.5-8.5 [facility] ([facility]) [place] # 0.3 10 0.0-0.8 [facility] ([facility]) Lymph # 1.3 10 1.5-5.0 [facility] ([facility]) Eos # 0.1 10 0.0-0.5 [facility] ([facility]) Baso # 0.0 10 0.0-0.2 [facility] ([facility]) ID Date Data Source [id number] 09/03/2020 12:39:00 PM EST [facility] ([facility]) Name Value Range Interpretation Code Description Data Dipika rce(s) Supporting Document(s) Rheumatoid factor [Units/volume] in Serum or Plasma Laboratory test result [facility] ([facility]) ID Date Data Source [id number] 09/03/2020 12:39:00 PM EST [facility] ([facility]) Name Value Range Interpretation Code Description Data Dipika rce(s) Supporting Document(s) Antinuclear Antibodies Direct Laboratory test result [facility] ([facility]) Performed at: RN - [facility] [address] [id number] Meat Carver: Deb Monzon MD, Phone: [phone] ID Date Data Source [id number] 09/03/2020 08:45:00 AM EST [facility] ([facility] Name Value Range Interpretation Code Description Data Dipika rce(s) Supporting Document(s) Free T4 0.93 [facility] Thyroid Stimulating Hormone 1.660 [place] DENT ([facility]) ID Date Data Source [id number] 09/03/2020 08:45:00 AM EST [facility] ([facility] Name Value Range Interpretation Code Description Data Dipika rce(s) Supporting Document(s) Triglycerides 78 [facility] ([facility]) Cholesterol in LDL [Mass/volume] in Serum or Plasma by calculation 76 [facility] ([facility]) Cholesterol 144 [facility] ([facility]) HDL 52 [facility] Chol/HDL Ratio 2.769 [facility] ([facility]) ID Date Data Source [id number] 09/03/2020 08:45:00 AM EST [facility] ([facility] Name Value Range Interpretation Code Description Data Dipika rce(s) Supporting Document(s) Albumin [Mass/volume] in Serum or Plasma 4.1 [facility] ([facility]) Alanine aminotransferase [Enzymatic activity/volume] in Serum or Pl asma 13 [facility] ([facility]) Calcium [Mass/volume] in Serum or Plasma 8.7 [facility] ([facility]) Carbon dioxide, total [Moles/volume] in Serum or Plasma 26 [facility] ([facility]) Alkaline phosphatase [Enzymatic activity/volume] in Serum or Plasma 4 2 [facility] ([facility]) Chloride [Moles/volume] in Serum or Plasma 108 [facility] ([facility]) Potassium [Moles/volume] in Serum or Plasma 3.7 [facility] ([facility]) Protein [Mass/volume] in Serum or Plasma 7.0 [facility] ([facility]) Aspartate aminotransferase [Enzymatic activity/volume] in Serum or Plasma 11 [facility] ([facility]) Sodium 140 [facility] Creatinine For GFR 0.64 [facility] ([facility] Urea nitrogen [Mass/volume] in Serum or Plasma 12 [facility] ([facility]) Glucose 88 83-110 [facility] ID Date Data Source [id number] 09/03/2020 08:45:00 AM EST [facility] ([facility] Name Value Range Interpretation Code Description Data Dipika rce(s) Supporting Document(s) White Blood Count 4.6 5.0-10.0 [facility] ([facility]) Red Blood Count 4.06 4.00-5.40 [facility] ([facility]) Platelets 302 172-450 [facility] Hemoglobin 12.2 [facility] ([facility]) Hematocrit 37.4 [facility] ([facility]) ID Date Data Source [id number] 05/13/2020 02:15:00 PM EDT [facility] Name Value Range Interpretation Code Description Data Dipika rce(s) Supporting Document(s) SARS coronavirus 2 RNA [facility] This lab was ordered by [facility] and reported by [facility]. ID Date Data Source [id number] 04/30/2020 01:52:00 PM EDT [facility] ([facility]) Name Value Range Interpretation Code Description Data Dipika rce(s) Supporting Document(s) Thyroid Stimulating Hormone 0.973 uIU/ML 0.358-3.740 [facility] ([facility]) Free T4 1.07 ng/dL 0.76-1.46 [facility] ([facility]) ID Date Data Source [id number] 11/27/2019 03:30:00 PM EST [facility] ([facility]) Name Value Range Interpretation Code Description Data Dipika rce(s) Supporting Document(s) Thyroxine (T4) free [Mass/volume] in Serum or Plasma 1.10 ng/dL 0.76- 1.46 [facility] ([facility]) Thyrotropin [Units/volume] in Serum or Plasma by Detec tion limit <= 0.05 mIU/L 0.989 uIU/ML 0.358-3.740 [facility] ([facility]) Procedure Social History Code Duration Value Status Description Data Source(s ) Smoking 11/04/2020 12:00:00 AM EST Patient has never smoked co mpleted Patient has never smoked [facility] ([facility]) Smoking 10/01/2020 12:00:00 AM EST Never Smoker completed Never S moker eCW1 ([facility]) Smoking 10/01/2020 12:00:00 AM EST Never Smoker completed Never S moker eCW1 (Formerly [facility]) Smoking 08/24/2020 12:00:00 AM EST Never Smoker completed Never S moker eCW1 (Formerly [facility]) Smoking 08/24/2020 12:00:00 AM EST Never Smoker completed Never S moker eCW1 (Formerly [facility]) Smoking 12/05/2019 12:00:00 AM EST Patient has never smoked co mpleted Patient has never smoked MEDENT ([facility]) Vital Signs ID Date Data Source UNK Name Value Range Interpretation Code Description Data Source(s) Diastolic blood pressure--supine 85 mm[Hg] 85 mm[Hg] [facility] ([facility]) Ra Systolic blood pressure--supine 132 mm[Hg] 132 mm[Hg] MEDENT ([facility]) Ra Diastolic blood pressure--sitting 84 mm[Hg] 84 mm[Hg] MEDENT ([facility]) Medium cuff, Ra; 122/ 82 LA Systolic blood pressure--sitting 127 mm[Hg] 127 mm[Hg] MEDENT ([facility]) Medium cuff, Ra; 122/ 82 LA Respiratory rate 16 /min 16 /min MEDENT ( [facility]) Heart rate 64 /min 64 /min [facility] ([facility] regular Body mass index (BMI) [Ratio] 22.5 kg/m2 22.5 k g/m2 MEDENT ([facility]) Body height 61 [in_i] 61 [in_i] [facility] 5'1" Body weight 119.00 [lb_av] 119.00 [lb_av] MEDEN T ([facility]) Body temperature 97.2 [degF] 97.2 [degF] MEDENT ([facility]) Body weight 54.432 kg 54.432 kg [facility] Body mass index (BMI) [Ratio] 22.7 kg/m2 22.7 k g/m2 MEDENT ([facility]) Heart rate 82 /min 82 /min [facility] ([facility]) Diastolic blood pressure 86 mm[Hg] 86 mm[Hg] MEDENT ([facility]) Systolic blood pressure 117 mm[Hg] 117 mm[Hg] M EDENT ([facility]) Body weight 120.00 [lb_av] 120.00 [lb_av] MEDEN T ([facility]) Body height 61 [in_i] 61 [in_i] MEDENT ([facility]) 5'1" Diastolic blood pressure 70 mm[Hg] 70 mm[Hg] eCW1 (Formerly [facility]) Systolic blood pressure 122 mm[Hg] 122 mm[Hg] e CW1 (Formerly [facility]) Body temperature 98.3 [degF] 98.3 [degF] eCW1 ( [facility]) Respiratory rate 18 /min 18 /min eCW1 ([facility]) Heart rate 105 /min 105 /min eCW1 ([facility]) Body mass index (BMI) [Ratio] 22.86 kg/m2 22.86 kg/m2 eCW1 (Formerly [facility]) Body height 61 [in_i] 61 [in_i] eCW1 ([facility]) Body weight 121 [lb_av] 121 [lb_av] eCW1 ([facility]) Diastolic blood pressure 70 mm[Hg] 70 mm[Hg] eCW1 ([facility]ly [facility]) Systolic blood pressure 110 mm[Hg] 110 mm[Hg] e CW1 ([facility]ly [facility]) Body temperature 99.0 [degF] 99.0 [degF] eCW1 ( [facility]) Respiratory rate 18 /min 18 /min eCW1 ([facility]) Heart rate 90 /min 90 /min eCW1 ([facility]) Body mass index (BMI) [Ratio] 22.86 kg/m2 22.86 kg/m2 eCW1 ([facility]ly [facility]) Body height 61 [in_i] 61 [in_i] eCW1 ([facility]) Body weight 121 [lb_av] 121 [lb_av] eCW1 ([facility]) Oxygen saturation in Arterial blood by Pulse oximetry 99 % 99 % MEDENT ([facility] ) Body mass index (BMI) [Ratio] 22.0 kg/m2 22.0 k g/m2 MED[facility] ([facility] ) Body weight 120.25 [lb_av] 120.25 [lb_av] MEDEN T ([facility] ) Body height 62 [in_i] 62 [in_i] MEDENT ([facility] ) 5'2" Heart rate 73 /min 73 /min MED[facility] ([facility] ) Diastolic blood pressure 70 mm[Hg] 70 mm[Hg] MEDENT ([facility] ) Systolic blood pressure 112 mm[Hg] 112 mm[Hg] M EDENT ([facility] ) Oxygen saturation in Arterial blood by Pulse oximetry 99 % 99 % MEDENT ([facility] ) Body mass index (BMI) [Ratio] 22.9 kg/m2 22.9 k g/m2 MEDENT ([facility] ) Body weight 125.00 [lb_av] 125.00 [lb_av] MEDEN T ([facility] ) Body height 62 [in_i] 62 [in_i] MEDENT ([facility]) 5'2" Heart rate 78 /min 78 /min MEDENT ([facility]) Diastolic blood pressure 62 mm[Hg] 62 mm[Hg] MEDENT ([facility]) Systolic blood pressure 106 mm[Hg] 106 mm[Hg] M EDENT ([facility]) Patient Treatment Plan of Care Planned Activity Planned Date Details Description Data Source (s) doxycycline hyclate 100 MG Oral Capsule 10/01/2020 12:00:00 AM EST eCW1 (Formerly [facility]) Fluconazole 150 MG Oral Tablet [Diflucan] 10/01/2020 12:00:00 AM ES T eCW1 (Formerly [facility]) Mupirocin 0.02 MG/MG Topical Ointment 10/01/2020 12:00:00 AM EST eCW1 (Formerly [facility]) chlorhexidine gluconate 40 MG/ML Medicated Liquid Soap [Hibiclens] 10/01/2020 12:00:00 AM EST eCW1 ([facility]) doxycycline hyclate 100 MG Oral Capsule 10/01/2020 12:00:00 AM EST eCW1 (Formerly [facility]) Fluconazole 150 MG Oral Tablet [Diflucan] 10/01/2020 12:00:00 AM ES T eCW1 (Formerly [facility]) Mupirocin 0.02 MG/MG Topical Ointment 10/01/2020 12:00:00 AM EST eCW1 (Formerly [facility]) chlorhexidine gluconate 40 MG/ML Medicated Liquid Soap [Hibiclens] 10/01/2020 12:00:00 AM EST eCW1 ([facility])
--- OUTSIDE RECORDS SUMMARY | 2020-11-09 11:14 | CCD | Continuity of Care Document ---
Author Author Maylin CHAN MD Organization Unknown Address [address] [place] [id number] Phone [phone] Problems Description No Information Available Social History Type Date Description Comments Sex Unknown Allergies, Adverse Reactions, Alerts Description No Information Available Medications Description No Information Available Immunizations Description No Information Available Vital Signs Description No Information Available Results Description No Information Available Procedures Date Code Description Status 08/27/2020 55615 X-Ray Knee Complete W/Obliques & Tunnel And/Or Standing Views Completed 08/27/2020 23558 X-Ray Finger(S) Two Views Comple [facility] [employer] Description No Information Available Encounters Type Date Location Provider Dx Diagnosis Office Visit 08/27/2020 3:00p [place] Darron Chan MD M25.561 Pain in right knee M19.042 Primary osteoarthritis, left hand Assessments Date Code Description Provider 08/27/2020 M25.561 Pain in right knee Darron drake MD 08/27/2020 M19.042 Primary osteoarthritis, left [place] Darron Chan MD Plan of Treatment Future Appointment(s):* 09/03/2020 8:45 am - Xiomara Ann PA-C at [place] 08/27/2020 - Darron Chan MD* M25.561 Pain [...]
[2020-11-09] MEDS ORDERED: LIDOCAINE 2% 100MG/5ML SDV (FOR ANES.) As Ordered ONE (12:10)
[2020-11-09] MEDS ORDERED: propofoL 200 MG/20 ML VIAL As Ordered ONE (12:10)
--- NOTE | 2020-11-09 12:15 | ROOR ---
Patient Name: Maylin Pryor Procedure Date: 11/09/2020 11:54 AM Date of : 1985 Age: 35 Room: [facility] Gender: Female Note Status: Finalized Procedure: Upper Endoscopy + Biopsies + Balloon Dilatation Indications: Dysphagia Providers: Eder Garcia MD Referring MD: Hafsa VALENCIA Requesting Provider: Medicines: Monitored Anesthesia Care Complications: No immediate complications. Procedure: Pre-Anesthesia Assessment: - The heart rate, respiratory rate, oxygen saturations, blood pressure, adequacy of pulmonary ventilation, and response to care were monitored throughout the procedure. The Endoscope was introduced through the mouth, and advanced to the second part of duodenum. The upper GI endoscopy was accomplished without difficulty. The patient tolerated the procedure well. Findings: The Z-line was irregular and was found 40 cm from the incisors. Mucosal changes including ringed esophagus were found in the lower third of the esophagus. Biopsies were taken with a cold forceps for histology. A TTS dilator was passed through the scope. Dilation with a 12-13.5-15 mm balloon, a 15-16.5-18 mm balloon and an 18-19-20 mm balloon dilator was performed to 20 mm. No other significant abnormalities were identified in a careful examination of the stomach. The exam of the duodenum was otherwise normal. The exam was otherwise without abnormality. Impression: - Z-line irregular, 40 cm from the incisors. - Esophageal mucosal changes suggestive of eosinophilic esophagitis. Biopsied. Dilated. - The examination was otherwise normal. Recommendation: - Patient has a contact number available for emergencies. The signs and symptoms of potential delayed complications were discussed with the patient. Return to normal activities tomorrow. Written discharge instructions were provided to the patient. - High fiber diet. - Discharge patient to home. - Follow an antireflux regimen. - Continue present medications. - Await pathology results. - Telephone GI clinic for pathology results in 1 week. - Return to referring physician. - The findings and recommendations were discussed with the patient. Procedure Code(s): --- Professional --- 26921, Esophagogastroduodenoscopy, flexible, transoral; with transendoscopic balloon dilation of esophagus (less than 30 mm diameter) Diagnosis Code(s): --- Professional --- K22.8, Other specified diseases of esophagus R13.10, Dysphagia, unspecified CPT copyright 2019 [employer]. All rights reserved. The codes documented in this report are preliminary and upon bottle hop review may be revised to meet current compliance requirements. Eder Garcia MD Eder Garcia MD 11/09/2020 12:15:13 PM Electronically signed by Eder Garcia MD Number of Addenda: 0 Note Initiated On: 11/09/2020 11:54 AM Estimated Blood Loss: Estimated blood loss: none.
[2020-11-09 12:35] VITALS: BP 120/78
== END 2020-11-09 12:47 | disposition home or self-care (01) ==
LOC: M OPP 11:08
PROVIDERS: ATTEND Internal Medicine Gastroenterology
DX: R13.10 Dysphagia, unspecified (principal); K22.8 Other specified diseases of esophagus

== ENCOUNTER → 2021-03-19 | Outpatient (CLI) | payer OTHER ==
[~2021-03-19] MED LIST changes: -NS 1,000 ML IV ONE
[2021-03-19 20:03] LABS: FREE T4 0.95 NG/DL (0.76-1.46); THYROID STIMULATING HORMONE 0.685 uIU/ML (0.358-3.740)
== END ==
LOC: M WUC 14:58
PROVIDERS: ATTEND Internal Medicine Endocrinology, Diabetes & Metabolism
DX: E06.3 Autoimmune thyroiditis (principal)

== ENCOUNTER → 2022-01-10 | Outpatient (CLI) | payer OTHER ==
[~2022-01-10] MED LIST changes: -OMEP-221 PO; +OMEP40CA5 PO
[2022-01-10 13:01] LABS: FREE T4 1.09 NG/DL (0.76-1.46); THYROID STIMULATING HORMONE 2.18 uIU/ML (0.358-3.740)
== END ==
LOC: M WUC 08:10
PROVIDERS: ATTEND Nurse Practitioner Family
DX: E06.3 Autoimmune thyroiditis (principal)

== ENCOUNTER → 2022-02-11 | Outpatient (CLI) | payer OTHER | LOC: M RAD 15:31 | PROVIDERS: ATTEND Physician Assistant Medical | DX: R43.9 Unspecified disturbances of smell and taste (principal); H40.9 Unspecified glaucoma; G43.909 Migraine, unspecified, not intractable, without status migrainosus ==

== ENCOUNTER → 2022-04-15 | Outpatient (CLI) | payer OTHER ==
[2022-04-15 17:17] LABS: BASO % 0.5 % (0.0-1.0); EOS # 0.1 10^3/uL (0.0-0.5); EOS % 1.3 % (0.0-3.0); HEMATOCRIT 38.3 % (36.0-47.0); HEMOGLOBIN 12.5 g/dl (12.0-15.5); LYMPH # 1.2 10^3/uL (1.5-5.0); LYMPH % 19.1 % (24.0-44.0); MEAN CORPUSCULAR HEMOGLOBIN 30.3 pg (27.0-33.0); MEAN CORPUSCULAR HGB CONC 32.6 g/dl (32.0-36.5); MONO # 0.4 10^3/uL (0.0-0.8); MONO % 7.2 % (2.0-8.0); NEUTROPHILS # 4.3 10^3/uL (1.5-8.5); NEUTROPHILS % 71.6 % (36.0-66.0); PLATELET COUNT, AUTOMATED 296 10^3/uL (150-450); RED BLOOD COUNT 4.12 10^6/uL (4.00-5.40)
[2022-04-15 17:18] LABS: BLOOD UREA NITROGEN 12 MG/DL (7-18); CALCIUM LEVEL 9.3 MG/DL (8.5-10.1); CARBON DIOXIDE LEVEL 25 MEQ/L (21-32); CHLORIDE LEVEL 109 MEQ/L (98-107); CREATININE FOR GFR 0.74 MG/DL (0.55-1.30); GLOMERULAR FILTRATION RATE > 60.0 (>60); GLUCOSE, FASTING 90 MG/DL (70-100); POTASSIUM SERUM 3.7 MEQ/L (3.5-5.1); SODIUM LEVEL 141 MEQ/L (136-145)
[2022-04-15 17:19] LABS: ALBUMIN 4.1 GM/DL (3.2-5.2); ALT/SGPT 16 U/L (12-78); BILIRUBIN,TOTAL 0.4 MG/DL (0.2-1.0); CHOLESTEROL LEVEL 147 MG/DL (<200); CHOLESTEROL RISK RATIO 2.826 (<5); FREE T4 1.01 NG/DL (0.76-1.46); HDL CHOLESTEROL 52 MG/DL (>40); LDL CHOLESTEROL 68 MG/DL (<100); NON-HDL-C 95 MG/DL; THYROID STIMULATING HORMONE 0.899 uIU/ML (0.358-3.740); TOTAL PROTEIN 6.8 GM/DL (6.4-8.2); TRIGLYCERIDES LEVEL 135 MG/DL (<150)
== END ==
LOC: M PLALAB 14:23
PROVIDERS: ATTEND Physician Assistant Medical
DX: E06.3 Autoimmune thyroiditis (principal); R13.10 Dysphagia, unspecified; Z13.220 Encounter for screening for lipoid disorders

== ENCOUNTER 2022-09-02 12:39 | Emergency (ER) | payer OTHER ==
[~2022-09-02] VITALS: Ht 154.9 cm; Wt 56.8 kg
[2022-09-02] MEDS ORDERED: SUMA25TA3 PO (12:54)
[2022-09-02] MEDS ORDERED: diphenhydrAMINE 50MG/ML VIAL IV ONE (15:30)
[2022-09-02] MEDS ORDERED: ACETAMINOPHEN 500 MG TAB PO ONE (15:30)
[2022-09-02] MEDS ORDERED: METOCLOPRAMIDE INJ 10MG/2ML VIAL (J2765 PER 1) IV ONE (15:30)
[2022-09-02] MEDS ORDERED: NS 1,000 ML IV ONE (15:30)
[2022-09-02 16:10] LABS: BASO % 0.3 % (0.0-1.0); EOS % 0.4 % (0.0-3.0); HEMATOCRIT 41.5 % (36.0-47.0); HEMOGLOBIN 13.4 g/dl (12.0-15.5); LYMPH # 0.9 10^3/uL (1.5-5.0); LYMPH % 11.9 % (24.0-44.0); MEAN CORPUSCULAR HEMOGLOBIN 29.7 pg (27.0-33.0); MEAN CORPUSCULAR HGB CONC 32.3 g/dl (32.0-36.5); MONO # 0.4 10^3/uL (0.0-0.8); MONO % 4.8 % (2.0-8.0); NEUTROPHILS # 6.5 10^3/uL (1.5-8.5); NEUTROPHILS % 82.2 % (36.0-66.0); PLATELET COUNT, AUTOMATED 358 10^3/uL (150-450); RED BLOOD COUNT 4.51 10^6/uL (4.00-5.40); WHITE BLOOD COUNT 7.9 10^3/uL (4.0-10.0)
[2022-09-02 16:47] LABS: BLOOD UREA NITROGEN 15 MG/DL (7-18); CALCIUM LEVEL 9.4 MG/DL (8.5-10.1); CARBON DIOXIDE LEVEL 27 MEQ/L (21-32); CHLORIDE LEVEL 106 MEQ/L (98-107); CREATININE FOR GFR 0.64 MG/DL (0.55-1.30); FREE T4 0.93 NG/DL (0.76-1.46); GLOMERULAR FILTRATION RATE > 60.0 (>60); GLUCOSE, FASTING 116 MG/DL (70-100); POTASSIUM SERUM 3.7 MEQ/L (3.5-5.1); SODIUM LEVEL 138 MEQ/L (136-145); THYROID STIMULATING HORMONE 0.599 uIU/ML (0.358-3.740)
[2022-09-02] MEDS ORDERED: REGL5TAB2 PO (16:53)
[2022-09-02 17:14] VITALS: BP 135/90
== END 2022-09-02 17:16 | disposition home or self-care (01) ==
LOC: M ED 12:39
DX: G43.909 Migraine, unspecified, not intractable, without status migrainosus (principal); I35.1 Nonrheumatic aortic (valve) insufficiency; K22.9 Disease of esophagus, unspecified; Z79.890 Hormone replacement therapy; Z79.899 Other long term (current) drug therapy
CPT/HCPCS: 70450; 80048; 84439; 84443; 85025; 96361; 96374; 96375; 99284; J1200; J2765

== ENCOUNTER → 2022-10-26 | Outpatient (CLI) | payer OTHER ==
[~2022-10-26] MED LIST changes: +REGL5TAB2 PO; +SUMA25TA3 PO
== END ==
LOC: M WHC 14:51
PROVIDERS: ATTEND Obstetrics & Gynecology
DX: Z12.31 Encounter for screening mammogram for malignant neoplasm of breast (principal); Z53.9 Procedure and treatment not carried out, unspecified reason

== ENCOUNTER → 2022-10-26 | Outpatient (REF) | payer OTHER | LOC: M PLALAB 16:09 | PROVIDERS: ATTEND Obstetrics & Gynecology | DX: Z01.419 Encounter for gynecological examination (general) (routine) without abnormal findings (principal) | CPT/HCPCS: 87624; G0123 ==

== ENCOUNTER → 2023-01-09 | Outpatient (CLI) | payer OTHER | LOC: M WUC 08:19 | PROVIDERS: ATTEND Internal Medicine Endocrinology, Diabetes & Metabolism | DX: E06.3 Autoimmune thyroiditis (principal) ==

== ENCOUNTER → 2023-01-10 | Outpatient (CLI) | payer OTHER | LOC: M WHC 14:41 | PROVIDERS: ATTEND Obstetrics & Gynecology | DX: N64.4 Mastodynia (principal) | CPT/HCPCS: 76641; 77066; G0279 ==

== ENCOUNTER → 2023-05-29 | Outpatient (CLI) | payer OTHER ==
[2023-05-29 17:09] LABS: FREE T4 1.2 NG/DL (0.89-1.76)
[2023-05-29 17:10] LABS: THYROID STIMULATING HORMONE 1.126 uIU/ML (0.55-4.78)
== END ==
LOC: M WUC 13:42
PROVIDERS: ATTEND Nurse Practitioner Family
DX: E06.3 Autoimmune thyroiditis (principal)

== ENCOUNTER → 2023-10-13 | Outpatient (REF) | payer OTHER ==
[2023-10-13 19:37] LABS: BASO % 0.6 % (0.0-1.0); EOS # 0.1 10^3/uL (0.0-0.5); EOS % 1.6 % (0.0-3.0); HEMATOCRIT 36.6 % (36.0-47.0); HEMOGLOBIN 12.1 g/dl (12.0-15.5); LYMPH # 1.7 10^3/uL (1.5-5.0); LYMPH % 24.7 % (24.0-44.0); MEAN CORPUSCULAR HEMOGLOBIN 30.6 pg (27.0-33.0); MEAN CORPUSCULAR HGB CONC 33.1 g/dl (32.0-36.5); MEAN CORPUSCULAR VOLUME 92.4 fl (80.0-96.0); MONO # 0.4 10^3/uL (0.0-0.8); MONO % 5.6 % (2.0-8.0); NEUTROPHILS # 4.6 10^3/uL (1.5-8.5); NEUTROPHILS % 67.1 % (36.0-66.0); PLATELET COUNT, AUTOMATED 311 10^3/uL (150-450); RED BLOOD COUNT 3.96 10^6/uL (4.00-5.40); WHITE BLOOD COUNT 6.8 10^3/uL (4.0-10.0)
[2023-10-13 19:42] LABS: ERYTHROCYTE SEDIMENTATION RATE 1 mm/hr (0-20)
[2023-10-13 19:48] LABS: C REACTIVE PROTEIN QUANTITATIV < 0.40 MG/DL (<1.0)
[2023-10-13 19:50] LABS: ALBUMIN 4.2 G/DL (3.2-5.2); ALKALINE PHOSPHATASE 43 U/L (46-116); ALT/SGPT 14 U/L (7.0-40); AST/SGOT 12 U/L (<34); BILIRUBIN,TOTAL 0.3 MG/DL (0.3-1.2); BLOOD UREA NITROGEN 18 MG/DL (9-23); CALCIUM LEVEL 8.6 MG/DL (8.5-10.1); CARBON DIOXIDE LEVEL 25 MMOL/L (20-31); CHLORIDE LEVEL 107 MMOL/L (98-107); CHOLESTEROL LEVEL 133 MG/DL (<200); CHOLESTEROL RISK RATIO 2.63 (<5); CREATININE FOR GFR 0.52 MG/DL (0.55-1.30); GLOMERULAR FILTRATION RATE > 60.0 (>60); GLUCOSE, FASTING 94 MG/DL (60-100); HDL CHOLESTEROL 50.4 MG/DL (>40); LDL CHOLESTEROL 57.2 MG/DL (<100); NON-HDL-C 82.6 MG/DL; POTASSIUM SERUM 3.8 MMOL/L (3.5-5.1); SODIUM LEVEL 138 MMOL/L (136-145); TOTAL PROTEIN 6.6 G/DL (5.7-8.2); TRIGLYCERIDES LEVEL 127 MG/DL (<150)
[2023-10-13 19:53] LABS: FREE T4 1.21 NG/DL (0.89-1.76); THYROID STIMULATING HORMONE 0.761 uIU/ML (0.55-4.78)
== END ==
LOC: M LABWUC 18:57
PROVIDERS: ATTEND Physician Assistant Medical
DX: Z13.220 Encounter for screening for lipoid disorders (principal); J30.9 Allergic rhinitis, unspecified; R59.0 Localized enlarged lymph nodes; G43.909 Migraine, unspecified, not intractable, without status migrainosus

== ENCOUNTER → 2024-03-25 | Outpatient (CLI) | payer OTHER ==
[2024-03-25 18:51] LABS: THYROID STIMULATING HORMONE 1.104 uIU/ML (0.55-4.78)
[2024-03-25 18:52] LABS: FREE T4 1.23 NG/DL (0.89-1.76)
== END ==
LOC: M PLALAB 16:14
PROVIDERS: ATTEND Nurse Practitioner Family
DX: E06.3 Autoimmune thyroiditis (principal)

== ENCOUNTER → 2025-01-29 | Outpatient (CLI) | payer OTHER ==
[2025-01-29 15:38] LABS: BASO % 0.5 % (0.0-1.0); EOS # 0.1 10^3/uL (0.0-0.5); EOS % 0.9 % (0.0-3.0); HEMATOCRIT 36.9 % (36.0-47.0); HEMOGLOBIN 12.1 g/dl (12.0-15.5); LYMPH # 1.5 10^3/uL (1.5-5.0); LYMPH % 24.3 % (24.0-44.0); MEAN CORPUSCULAR HEMOGLOBIN 28.7 pg (27.0-33.0); MEAN CORPUSCULAR HGB CONC 32.8 g/dl (32.0-36.5); MEAN CORPUSCULAR VOLUME 87.6 fl (80.0-96.0); MONO # 0.4 10^3/uL (0.0-0.8); MONO % 6.6 % (2.0-8.0); NEUTROPHILS # 4.3 10^3/uL (1.5-8.5); NEUTROPHILS % 67.4 % (36.0-66.0); PLATELET COUNT, AUTOMATED 352 10^3/uL (150-450); RED BLOOD COUNT 4.21 10^6/uL (4.00-5.40); WHITE BLOOD COUNT 6.3 10^3/uL (4.0-10.0)
[2025-01-29 16:08] LABS: ALBUMIN 4.1 G/DL (3.2-5.2); ALKALINE PHOSPHATASE 49 U/L (35-104); ALT/SGPT 17 U/L (7.0-40); AST/SGOT 10 U/L (<34); BILIRUBIN,TOTAL 0.3 MG/DL (0.3-1.2); BLOOD UREA NITROGEN 15 MG/DL (9-23); CALCIUM LEVEL 8.7 MG/DL (8.5-10.1); CARBON DIOXIDE LEVEL 27 MMOL/L (20-31); CHLORIDE LEVEL 106 MMOL/L (98-107); CHOLESTEROL LEVEL 151 MG/DL (<200); CHOLESTEROL RISK RATIO 3.02 (<5); GLOMERULAR FILTRATION RATE > 90.0 (>60); GLUCOSE, FASTING 92 MG/DL (60-100); LDL CHOLESTEROL 81.8 MG/DL (<100); MAGNESIUM LEVEL 2.1 MG/DL (1.8-2.4); SODIUM LEVEL 140 MMOL/L (136-145); TOTAL PROTEIN 6.9 G/DL (5.7-8.2); TRIGLYCERIDES LEVEL 96 MG/DL (<150)
[2025-01-29 16:09] LABS: THYROID STIMULATING HORMONE 1.188 uIU/ML (0.55-4.78); TOTAL 25(OH) VITAMIN D 27.8 NG/ML (20.0-100.0)
== END ==
LOC: M PLALAB 14:09
PROVIDERS: ATTEND Physician Assistant Medical
DX: J30.9 Allergic rhinitis, unspecified (principal); G43.909 Migraine, unspecified, not intractable, without status migrainosus; Z13.220 Encounter for screening for lipoid disorders; E06.3 Autoimmune thyroiditis; R00.2 Palpitations; E55.9 Vitamin D deficiency, unspecified

== ENCOUNTER → 2025-02-26 | Outpatient (CLI) | payer OTHER | LOC: M EKG 15:59 | PROVIDERS: ATTEND Physician Assistant | DX: R00.2 Palpitations (principal) ==

== ENCOUNTER → 2025-05-07 | Outpatient (CLI) | payer OTHER | LOC: M RAD 13:57 | PROVIDERS: ATTEND Nurse Practitioner Family | DX: E04.2 Nontoxic multinodular goiter (principal) ==

== ENCOUNTER → 2025-05-12 | Outpatient (REF) | payer OTHER ==
[2025-05-12 16:18] LABS: FREE T4 1.22 NG/DL (0.89-1.76)
== END ==
LOC: M LABWUC 14:21
PROVIDERS: ATTEND Nurse Practitioner Family
DX: E06.3 Autoimmune thyroiditis (principal)

== ENCOUNTER → 2025-08-19 | Outpatient (CLI) | payer OTHER ==
[~2025-08-19] MED LIST changes: +ISOVUE-370 76% 100 ML VIAL As Ordered ONE
== END ==
LOC: M RAD 16:15
PROVIDERS: ATTEND Otolaryngology
DX: R13.10 Dysphagia, unspecified (principal); R43.8 Other disturbances of smell and taste; J34.2 Deviated nasal septum
CPT/HCPCS: 70486; 70491; Q9967

== ENCOUNTER → 2025-09-30 | Outpatient (CLI) | payer OTHER ==
[~2025-09-30] MED LIST changes: +E-Z-GAS II EFFERVESCENT PACKET (SODIUM BICARB./CITRIC ACID/SIMETHICONE) As Ordered ONE; +E-Z-HD 98% w/w 340 GM SUSP BTL As Ordered ONE; +E-Z-PAQUE 96% w/w SUSP 176 GM BTL As Ordered ONE; -ISOVUE-370 76% 100 ML VIAL As Ordered ONE
== END ==
LOC: M RAD 07:28
PROVIDERS: ATTEND Otolaryngology
DX: R13.10 Dysphagia, unspecified (principal)